=== PATIENT | female | born 1960 | race Caucasian/White ===

== ENCOUNTER 2017-08-04 11:38 | Emergency (ER) | payer BC, SELFPAY ==
[2017-08-04 12:07] VITALS: BP 122/81; PULSE 73; RESP 18; TEMP 36.6; O2SAT 99; BMI 25.1
[2017-08-04 12:13] LABS: UTC Influenza A Antigen Negative (Negative); UTC Influenza B Antigen Negative (Negative)
--- NOTE | 2017-08-04 12:53 | HMH.EDUTC ---
[facility] [place] Disposition Clinical Impression: Upper respiratory infection Qualifiers: URI type: unspecified URI Qualified Code(s): J06.9 - Acute upper respiratory infection, unspecified Disposition: Home, Self-Care Condition on Discharge: Good Instructions: Cough, Guaifenesin Additional Instructions: Take medication as prescribed Follow up with family doctor if symptoms worsen or no improvement Return if needed * Monitor Temp. Tylenol and/or Ibuprofen as needed. ER if fever is no less than 101 despite alternating Tylenol and Ibuprofen * Encourage fluids, water, Gatorade, powerade, pedialyte if /toddler/or child * Warm salt water gargles for throat irritation *Warm fluids *Sore throat lozenges *Sleep elevated *humidifier or vaporizer Lots of rest Increase fluids, water, Gatorade, powerade Prescriptions: Azithromycin [Z-Pb 250mg Tab] 250 mg PO UD DOSE PK #6 tab Dextromethorphan Polistirex [Delsym] 10 ml PO Q6H PRN #200 glen.er.12h PRN Reason: Cough predniSONE [Prednisone 10mg Tab Dose-Pack] 10 mg PO UD DOSE PK #1 pack Referrals: Joseph Pike MD [Primary Care Provider] - Time of Disposition: 13:28 Medical Decision Making Vital Signs: 08/04/17 12:07 Temperature 97.9 F Temperature Source Temporal Artery Scan Pulse Rate [Right] 73 Respiratory Rate 18 Blood Pressure [Right Arm] 122/81 Blood Pressure Mean [Right Arm] 94 Blood Pressure Source [Right Arm] Automatic Cuff Blood Pressure Position [Right Arm] Sitting 02 Sat by Pulse Oximetry 99 Oxygen Delivery Method Room Air - Lab Data Lab Results 08/04/17 12:07: Influenza Type A Ag Negative, Influenza Type B Ag Negative Orders (Tests/Meds): ORDERS Category Date Time Status Chest XR 2 view (NOT portable) [XR chest 2V] Stat Exams 08/04/17 12:55 Taken - Radiology Data #1 Image(s): Chest Image Reviewed: Yes I discussed the image results w/the radiologist Preliminary Findings: Normal/NAD calcified granuloma noted right lower lobe, no acute changes - Darek Inquiry Pt receiving controlled substance: No Darek was queried for this patient: No [facility] [place] HPI - General Stated complaint: congestion Mode of Arrival: Ambulatory Source of Information: Patient Limitations: No Limitations Description of Symptoms (Recalled from Triage Doc. by RN): COUGH, CONGESTION HEENT Symptoms (Recalled from RN notes): Yes Resp Symptoms (Recalled from RN notes): No Skin Symptoms (Recalled from RN notes): No MS Symptoms (Recalled from RN notes): No Functional Status (Recalled from RN notes): N - History of Present Illness Provider Complaint: Patient state that she has been having cough and congestion now for over a month that has continued to get worse State that she has been seen and treated by her family doctor and felt like she was getting better and now it has returned States that she has had non-productive cough, and chest congestion - Related Data Home Medications Medication Instructions Recorded Confirmed Bisoprolol Fumarate 10 mg PO BID 08/04/17 08/04/17 Cyclobenzaprine HCl 10 mg PO DAILY 08/04/17 08/04/17 [Cyclobenzaprine 10mg Tab] Gabapentin [Gabapentin 300mg Cap] 900 mg PO TID 08/04/17 08/04/17 Trazodone HCl 150 mg PO DAILY 08/04/17 08/04/17 hydroCHLOROthiazide [HCTZ 25mg 25 mg PO DAILY 08/04/17 08/04/17 tab] Previous Rx's Medication Instructions Recorded Azithromycin [Z-Pb 250mg Tab] 250 mg PO UD DOSE PK #6 tab 08/04/17 Dextromethorphan Polistirex 10 ml PO Q6H PRN #200 glen.er.12h 08/04/17 [Delsym] predniSONE [Prednisone 10mg Tab 10 mg PO UD DOSE PK #1 pack 08/04/17 Dose-Pack] Allergies Allergy/AdvReac Type Severity Reaction Status Date / Time Penicillins [PENICILLINS] Allergy Unknown NA-NAUSEA/V Verified 08/04/17 12:12 OMITING - Worker's Comp Is this a Worker's Comp case?: No [facility] History I have reviewed the patient's past medical history: Yes - *Social History Smoking Status: Current every
--- NOTE | 2017-08-04 12:55 | XR_ITS ---
XR chest 2V HISTORY: ITS.REASON: congestion ORDERING PHYSICIAN: Jo-Ann Marvin PATIENT AGE: 57 years COMPARISON: 04/17/2017 FINDINGS: The cardiomediastinal silhouette and pulmonary vascularity are within normal limits. The lungs are clear without infiltrates, suspicious nodules, or pleural effusions. There is a calcified granuloma in the right lung base anteriorly No acute bony abnormalities. IMPRESSION: No acute finding. Old granulomatous disease
--- NOTE | 2017-08-04 13:02 | ED_ITS ---
[facility] [place] Disposition Clinical Impression: Upper respiratory infection Qualifiers: URI type: unspecified URI Qualified Code(s): J06.9 - Acute upper respiratory infection, unspecified Disposition: Home, Self-Care Condition on Discharge: Good Instructions: Cough, Guaifenesin Additional Instructions: Take medication as prescribed Follow up with family doctor if symptoms worsen or no improvement Return if needed * Monitor Temp. Tylenol and/or Ibuprofen as needed. ER if fever is no less than 101 despite alternating Tylenol and Ibuprofen * Encourage fluids, water, Gatorade, powerade, pedialyte if /toddler/or child * Warm salt water gargles for throat irritation *Warm fluids *Sore throat lozenges *Sleep elevated *humidifier or vaporizer Lots of rest Increase fluids, water, Gatorade, powerade Prescriptions: Azithromycin [Z-Pb 250mg Tab] 250 mg PO UD DOSE PK #6 tab Dextromethorphan Polistirex [Delsym] 10 ml PO Q6H PRN #200 glen.er.12h PRN Reason: Cough predniSONE [Prednisone 10mg Tab Dose-Pack] 10 mg PO UD DOSE PK #1 pack Referrals: Joseph Pike MD [Primary Care Provider] - Time of Disposition: 13:28 Medical Decision Making Vital Signs: 08/04/17 12:07 Temperature 97.9 F Temperature Source Temporal Artery Scan Pulse Rate [Right] 73 Respiratory Rate 18 Blood Pressure [Right Arm] 122/81 Blood Pressure Mean [Right Arm] 94 Blood Pressure Source [Right Arm] Automatic Cuff Blood Pressure Position [Right Arm] Sitting 02 Sat by Pulse Oximetry 99 Oxygen Delivery Method Room Air - Lab Data Lab Results 08/04/17 12:07: Influenza Type A Ag Negative, Influenza Type B Ag Negative Orders (Tests/Meds): ORDERS Category Date Time Status Chest XR 2 view (NOT portable) [XR chest 2V] Stat Exams 08/04/17 12:55 Taken - Radiology Data #1 Image(s): Chest Image Reviewed: Yes I discussed the image results w/the radiologist Preliminary Findings: Normal/NAD calcified granuloma noted right lower lobe, no acute changes - Darek Inquiry Pt receiving controlled substance: No Darek was queried for this patient: No [facility] [place]PI - General Stated complaint: congestion Mode of Arrival: Ambulatory Source of Information: Patient Limitations: No Limitations Description of Symptoms (Recalled from Triage Doc. by RN): COUGH, CONGESTION HEENT Symptoms (Recalled from RN notes): Yes Resp Symptoms (Recalled from RN notes): No Skin Symptoms (Recalled from RN notes): No MS Symptoms (Recalled from RN notes): No Functional Status (Recalled from RN notes): N - History of Present Illness Provider Complaint: Patient state that she has been having cough and congestion now for over a month that has continued to get worse State that she has been seen and treated by her family doctor and felt like she was getting better and now it has returned States that she has had non-productive cough, and chest congestion - Related Data Home Medications Medication Instructions Recorded Confirmed Bisoprolol Fumarate 10 mg PO BID 08/04/17 08/04/17 Cyclobenzaprine HCl 10 mg PO DAILY 08/04/17 08/04/17 [Cyclobenzaprine 10mg Tab] Gabapentin [Gabapentin 300mg Cap] 900 mg PO TID 08/04/17 08/04/17 Trazodone HCl 150 mg PO DAILY 08/04/17 08/04/17 hydroCHLOROthiazide [HCTZ 25mg 25 mg PO DAILY 08/04/17 08/04/17 tab] Previo
== END 2017-08-04 13:40 | disposition home or self-care (01) ==
PROVIDERS: Emergency Provider Nurse Practitioner; Family Provider Internal Medicine Adolescent Medicine; PCP Internal Medicine Adolescent Medicine
DX: J06.9 Acute upper respiratory infection, unspecified (principal); F17.210 Nicotine dependence, cigarettes, uncomplicated
CPT/HCPCS: 71046; 87804; 99202

== ENCOUNTER → 2017-10-20 12:52 | Outpatient (CLI) | payer BC, SELFPAY ==
[2017-10-20 13:19] LABS: Basophils % 0.5 % (0.1-2.0); Eosinophils # 0.4 K/mm3 (0.0-0.4); Eosinophils % 6.7 % (0.1-12.0); Hematocrit 46.5 % (37.0-47.0); Hemoglobin 15.9 g/dL (12.2-16.2); Lymphocytes # 2.4 K/mm3 (0.7-4.5); Lymphocytes % 36.8 K/mm3 (10-50); Mean Corpuscular HGB Conc 34.2 g/dL (31.8-35.4); Mean Corpuscular Hemoglobin 31.8 pg (27.0-31.2); Mean Platelet Volume 8.5 fl (7.4-10.4); Monocytes # 0.3 K/mm3 (0.1-1.0); Monocytes % 4.6 % (1.7-9.3); Neutrophils # 3.3 K/mm3 (1.8-7.8); Neutrophils % 51.4 % (37.0-80.0); Platelet Count 259 K/mm3 (142-424); Red Blood Count 4.99 M/mm3 (4.20-5.40); Red Cell Distribution Width 12.3 % (11.5-17.5); White Blood Count 6.5 K/mm3 (4.8-10.8)
[2017-10-20 14:04] LABS: Thyroid Stimulating Hormone 1.21 uIU/ml (0.358-3.740)
[2017-10-21 15:48] LABS: Cancer Antigen (CA) 125 10.6 U/mL (0.0-38.1)
== END ==
PROVIDERS: PCP Internal Medicine Adolescent Medicine; Visit Provider Obstetrics & Gynecology
DX: L65.9 Nonscarring hair loss, unspecified (principal); R10.2 Pelvic and perineal pain
CPT/HCPCS: 36415; 84443; 85025; 86316

== ENCOUNTER → 2017-10-26 09:18 | Outpatient (CLI) | payer BC, SELFPAY ==
--- NOTE | 2017-10-26 09:28 | US_ITS ---
US transvaginal COMPARISON: None HISTORY: Previous partial hysterectomy 1985, complaining pelvic pain for the past 2 years TECHNIQUE: Transvaginal scanning FINDINGS: The vaginal cuff appears unremarkable. The left ovary is normal in size and shows homogeneous echogenicity. The right ovary is normal size and shows a dominant and probable functional cyst measuring 2.1 x 2.5 x 1.3 cm. Loops of bowel likely colon are seen in the midline of the mid pelvis. There is no free fluid. IMPRESSION: Normal-appearing left ovary, small cyst right ovary is noted
--- NOTE | 2017-10-26 09:28 | MM_ITS ---
MM Dig screening mamm BI w/CAD CAD Screening ORDERING PHYSICIAN : Charles Caicedo MD PATIENT AGE: 57 years GENDER: Female COMPARISON: We have requested outside studies from [facility] but they've never arrived less study is dictated without previous INDICATION: No hormones no new complaints. Patient with history of cervical cancer Family history. Mother breast cancer age 58 TECHNIQUE: Standard CC and MLO images were obtained. And axillary cc view left breast R2 CAD reviewed. FINDINGS: Moderate density breast RIGHT BREAST:Small cluster of more likely benign calcifications,-which are for the most part fairly round and punctate, noted at the upper outer quadrant of the right breast Prior studies would be helpful.. This Area Is Labeled A. Suggest CC and 90 degree and MLO magnification spot views of this area when patient returns. If feasible perhaps 90 degree spot view can include area B and C can include Patient has other small areas of loosely grouped tiny more likely benign calcifications right breast: . Area labeled B in the deep breast. Also area labeled C towards medial central breast would also benefit from follow-up study Moderate density right breast with some mild asymmetry. But no discrete or dominant mass LEFT BREAST:. Mild asymmetry with slightly greater density at upper-outer quadrant left versus right. This region highlighted by CAD as well.. Again prior films of the very helpful and we will call again for such... Appears be some minimal nodularity here at site labeled X. Could merely be a small cyst. However recommend ultrasound to survey this region of denser tissue & asymmetry extending towards upper-outer quadrant left breast. Follow-up to exclude palpable area here also suggested . IMPRESSION: We have called for previous studies from [facility] but they have never arrived. They would have been very helpful in this case . The breasts with moderate asymmetry. . Left Breast: with notable asymmetric denser tissue extending from retroareolar region into the upper-outer quadrant. Small 8 x 10 mm nodular density suggested in this region.- Possible cyst. Recommend spot views and ultrasound to survey this area upper outer quadrant, left breast. Could merely be asymmetric fibroglandular tissue but warrants ultrasound survey RIGHT BREAST: scattered small groupings of calcifications, most likely benign . Most notable clustered area of calcifications seen at deep upper-outer quadrant right breast.. Magnification spot views suggested here to further evaluate when patient returns BI-RADS Category: 0 Need Additional Imaging Evaluaiton. RECOMMENDED FOLLOW-UP: IMM - IMMEDIATE FOLLOW-UP RECOMMENDED ADDITIONAL IMAGING Bilateral Spot views as text above, along with left breast ultrasound . (A letter has been sent to the patient regarding results of the study.)
== END ==
PROVIDERS: Family Provider Internal Medicine Adolescent Medicine; PCP Internal Medicine Adolescent Medicine; Visit Provider Obstetrics & Gynecology
DX: Z12.31 Encounter for screening mammogram for malignant neoplasm of breast (principal); R10.2 Pelvic and perineal pain
CPT/HCPCS: 76830; 77067

== ENCOUNTER → 2017-11-17 10:18 | Outpatient (CLI) | payer BC, SELFPAY ==
[2017-11-17 10:21] LABS: Microscopic, Urine URINE MICROSCOPIC (MICROSCOPIC)
--- NOTE | 2017-11-17 10:37 | XR_ITS ---
XR chest 2V HISTORY: ITS.REASON: HTN ORDERING PHYSICIAN: Charles Caicedo MD PATIENT AGE: 57 years COMPARISON: 08/04/2017 FINDINGS: The cardiomediastinal silhouette and pulmonary vascularity are within normal limits. The lungs are clear without infiltrates, suspicious nodules, or pleural effusions. Calcified granulomas present in the right lung base anteriorly No acute bony abnormalities. IMPRESSION: No change with no acute finding
[2017-11-17 10:55] LABS: Appearance,Urine CLEAR (Clear); Bilirubin,Urine Negative (Negative); Blood, Urine Negative (Negative); Color,Urine YELLOW (Yellow); Glucose,Urine (UA) Negative (Negative); Ketones,Urine Negative (Negative); Leukocyte Esterase,Urine Negative (Negative); Nitrate,Urine Negative (Negative); Protein,Urine Negative (Negative); Urobilinogen,Urine 0.2 EU/dl (0.2)
[2017-11-17 11:05] LABS: Basophils # 0.1 K/mm3 (0-0.2); Basophils % 0.7 % (0.1-2.0); Eosinophils # 0.6 K/mm3 (0.0-0.4); Eosinophils % 7.8 % (0.1-12.0); Hematocrit 44.1 % (37.0-47.0); Hemoglobin 14.7 g/dL (12.2-16.2); Lymphocytes # 2.7 K/mm3 (0.7-4.5); Lymphocytes % 33.1 K/mm3 (10-50); Mean Corpuscular HGB Conc 33.3 g/dL (31.8-35.4); Mean Corpuscular Hemoglobin 30.8 pg (27.0-31.2); Mean Corpuscular Volume 92.5 fl (81-99); Mean Platelet Volume 7.4 fl (7.4-10.4); Monocytes # 0.5 K/mm3 (0.1-1.0); Monocytes % 6.5 % (1.7-9.3); Neutrophils # 4.2 K/mm3 (1.8-7.8); Neutrophils % 51.9 % (37.0-80.0); Platelet Count 269 K/mm3 (142-424); Red Blood Count 4.77 M/mm3 (4.20-5.40); Red Cell Distribution Width 12.7 % (11.5-17.5); White Blood Count 8.2 K/mm3 (4.8-10.8)
[2017-11-17 11:26] LABS: WBC,Urine Occasional #/hpf (0-3)
[2017-11-17 11:27] LABS: Bacteria,Urine 1+ /lpf
[2017-11-17 12:16] LABS: Alanine Aminotransferase 20 U/L (12-78); Albumin Level 3.9 gm/dL (3.4-5.0); Alkaline Phosphatase 103 U/L (46-116); Anion Gap 11.3 mEq/L (5-15); Aspartate Amino Transferase 18 U/L (15-37); Bilirubin,Total 0.3 mg/dL (0.2-1.0); Blood Urea Nitrogen 14 mg/dL (7-18); Calcium 9.3 mg/dL (8.5-10.1); Carbon Dioxide 32 mmol/L (21.0-32.0); Chloride 102 mmol/L (98-107); Creatinine,Serum 0.98 mg/dL (0.55-1.02); Estimated Glomerular Filt Rate 59 ml/min (>60); GFR (African American) 71 ML/MIN (>60); Globulin 3.9 gm/dl (1.3-3.2); Glucose 81 mg/dL (74-106); Potassium 3.3 mmoL/L (3.5-5.1); Sodium 142 mmol/L (136-145); Total Protein,Serum 7.8 gm/dL (6.4-8.2)
== END ==
PROVIDERS: Visit Provider Obstetrics & Gynecology
DX: Z01.818 Encounter for other preprocedural examination (principal); R19.00 Intra-abdominal and pelvic swelling, mass and lump, unspecified site; R10.2 Pelvic and perineal pain
CPT/HCPCS: 36415; 71046; 80053; 81001; 85025; 93005

== ENCOUNTER → 2017-12-08 13:46 | Outpatient (CLI) | payer BC, SELFPAY ==
--- NOTE | 2017-12-08 13:49 | US_ITS ---
MM Dig mamm BI DX w/CAD, US breast LT complete COMPARISON: 10/26/2017, 08/23/2009 INDICATION: Follow-up abnormal mammogram ORDERING PHYSICIAN: Charles Caicedo MD PATIENT AGE: 57 years TECHNIQUE: Problem-solving views performed along with left breast ultrasound FINDINGS: THE REPORT IS DELAYED WAITING ON OUTSIDE FILMS FOR COMPARISON WHICH ARRIVED FOR TODAY'S INTERPRETATION Right breast: Cluster of calcifications noted in the upper outer aspect of the right breast which were labeled as A on the screening exam. These calcifications were present on the exam of 08/23/2009 probably unchanged however better demonstrated due to technique. Other smaller clusters of calcification noted which were labeled as B and C. These were not readily apparent on the previous study but may not have been seen due to the technique. Six-month follow-up is suggested Probably benign. Left breast: Cluster of calcifications noted in the upper outer aspect of left breast may be present previously but better seen on today's exam likely related to the technique. Asymmetric density in the upper outer aspect of the left breast does appear to compress out and may represent fibroglandular tissue. No discrete sonographic abnormality in this region. Left breast ultrasound: No solid or cystic lesions evident. Specifically, no abnormalities evident in the area of concern on the screening exam. IMPRESSION: Bilateral breast calcifications which are probably benign. Asymmetric density upper outer left breast does appear to compress out as fibroglandular tissue BI-RADS Category: 3 Benign Finding Short Term Follow-up RECOMMENDED FOLLOW-UP: 6M - 6 MONTH FOLLOW-UP (A letter has been sent to the patient regarding results of the study.)
== END ==
PROVIDERS: Family Provider Internal Medicine Adolescent Medicine; PCP Internal Medicine Adolescent Medicine; Visit Provider Obstetrics & Gynecology
DX: R92.8 Other abnormal and inconclusive findings on diagnostic imaging of breast (principal); N64.89 Other specified disorders of breast
CPT/HCPCS: 76641; 77066

== ENCOUNTER → 2018-05-29 08:36 | Outpatient (CLI) | payer BC, SELFPAY ==
[2018-05-29 11:17] LABS: Hemoglobin A1C 5.9 % (0.0-7.0)
== END ==
PROVIDERS: Visit Provider Family Medicine
DX: R73.9 Hyperglycemia, unspecified (principal)
CPT/HCPCS: 36415; 83036

== ENCOUNTER → 2019-09-05 08:03 | Outpatient (CLI) | payer BC, SELFPAY ==
--- NOTE | 2019-09-05 08:08 | US_ITS ---
PROCEDURE: US ABDOMEN COMPLETE CLINICAL INDICATION: CIRRHOSIS COMPARISON: ABD US ABD(COMPLETE-MULTI ORGANS from 10/27/[address] abdomen pelvis w con from 01/28/2019 FINDINGS: PANCREAS: Unremarkable. No obvious mass or abnormal fluid collection. No ductal dilatation LIVER: No focal liver lesions demonstrated. Homogeneous echogenicity. No intrahepatic biliary ductal dilatation evident. There is appropriate direction of blood flow within a non dilated portal vein. The liver is enlarged measuring 23 cm in transverse dimension. RIGHT KIDNEY: Unremarkable. Normal size and echogenicity. No hydronephrosis LEFT KIDNEY: Unremarkable. Normal size and echogenicity. No hydronephrosis GALLBLADDER: Prior cholecystectomy. Common bile duct is 7 mm. AORTA: No evidence of aneurysmal dilatation. SPLEEN: Unremarkable. Normal size and echogenicity ASCITES: None demonstrated. IMPRESSION: Prior cholecystectomy. Mild pattern megaly otherwise Dictated by: Fede Rodriguez MD 09/05/2019 11:58 Electronically signed by Fede Rodriguez MD in [place] 09/05/2019 11:58
[2019-09-05 09:30] LABS: INR 0.98 (0.9-1.1); Prothrombin Time 10.2 seconds (9.4-11.8)
[2019-09-05 09:35] LABS: Basophils % 0.4 % (0.1-2.0); Eosinophils # 0.5 K/mm3 (0.0-0.4); Eosinophils % 5.9 % (0.1-12.0); Hematocrit 41.3 % (37.0-47.0); Hemoglobin 13.7 g/dL (12.2-16.2); Lymphocytes # 2.1 K/mm3 (0.7-4.5); Lymphocytes % 25.8 % (10-50); Mean Corpuscular HGB Conc 33.2 g/dL (31.8-35.4); Mean Corpuscular Volume 93.4 fl (81-99); Mean Platelet Volume 7.9 fl (7.4-10.4); Monocytes # 0.4 K/mm3 (0.1-1.0); Monocytes % 5.1 % (1.7-9.3); Neutrophils % 62.9 % (37.0-80.0); Platelet Count 234 K/mm3 (142-424); Red Blood Count 4.42 M/mm3 (4.20-5.40); Red Cell Distribution Width 12.6 % (11.5-17.5)
[2019-09-05 11:15] LABS: Alanine Aminotransferase 18 U/L (12-78); Albumin Level 3.6 gm/dL (3.4-5.0); Alkaline Phosphatase 83 U/L (46-116); Anion Gap 13.6 mEq/L (5-15); Aspartate Amino Transferase 16 U/L (15-37); Bilirubin,Total 0.4 mg/dL (0.2-1.0); Blood Urea Nitrogen 12 mg/dL (7-18); Calcium 9.2 mg/dL (8.5-10.1); Carbon Dioxide 30 mmol/L (21.0-32.0); Chloride 105 mmol/L (98-107); Estimated Glomerular Filt Rate 65 ml/min (>60); GFR (African American) 78 ML/MIN (>60); Globulin 3.5 gm/dl (1.3-3.2); Glucose 96 mg/dL (74-106); Potassium 3.6 mmoL/L (3.5-5.1); Sodium 145 mmol/L (136-145); Total Protein,Serum 7.1 gm/dL (6.4-8.2)
[2019-09-07 15:07] LABS: AFP, Tumor Marker 6.8 ng/mL (0.0-8.3)
== END ==
PROVIDERS: PCP Family Medicine; Visit Provider Internal Medicine Gastroenterology
DX: K74.69 Other cirrhosis of liver (principal); Z86.19 Personal history of other infectious and parasitic diseases
CPT/HCPCS: 36415; 76700; 80053; 82105; 85025; 85610; 87522

== ENCOUNTER → 2020-08-20 12:52 | Outpatient (CLI) | payer BC, SELFPAY ==
--- NOTE | 2020-08-20 13:02 | XR_ITS ---
PROCEDURE: XR CHEST 2V CLINICAL HISTORY: chest pain, dyspnea COMPARISON: CR CXR1 CHEST-PORTABLE from 04/17/2017 CR CXR2V XR chest 2V from 08/04/2017 DX CXR2V XR chest 2V from 11/17/2017 FINDINGS: The cardiomediastinal silhouette and pulmonary vascularity are within normal limits. The lungs are clear without infiltrates, suspicious nodules, or pleural effusions. Calcified granuloma right lung base. The remaining lungs are clear. No acute bony findings. IMPRESSION: No acute findings. Dictated by: Fede Rodriguez MD 08/20/2020 17:15 Fede Rodriguez MD in [place] 08/20/2020 17:15
== END ==
LOC: RAD 12:54
PROVIDERS: PCP Family Medicine; Visit Provider Internal Medicine
DX: R07.9 Chest pain, unspecified (principal); R06.00 Dyspnea, unspecified; R00.2 Palpitations; I51.7 Cardiomegaly; F17.200 Nicotine dependence, unspecified, uncomplicated
CPT/HCPCS: 71046; 93225; 93226

== ENCOUNTER → 2020-08-27 06:36 | Outpatient (CLI) | payer BC, SELFPAY ==
--- NOTE | 2020-08-27 06:36 | CA_ITS ---
APPROVED REPORT Exam: Pharmacologic Technologist: Flavia Israel Ht: 5 ft 10 in Wt: 169 lbs BSA: 1.94 m2 HR: 64 bpm BP: 172/89 mmHg Indications: Palpitations, Shortness of Air Medical History Medications: Lisinopril,,,,, Gabapentin,,,,, HCTZ,,,,, Ibuprofen,,,,, BisOPROLOL,,,,, Cyclobenzaprine,,,,, Hydroxyzine,,,,, Trazodone,,,,, Pleranatide,,,,, Stress Test Details Test: LEXISCAN HR Resting HR: 70 bpm Max Heart Rate (APMHR): 162 bpm Max HR Achieved: 92 bpm Target HR (85% APMHR): 137 bpm % of APMHR: 56 Recovery HR: 80 bpm BP Resting BP: 172.0/89.0 mmHg Max BP: 172.0/89.0 mmHg Recovery BP: 168.0/93.0 mmHg ECG Clinical Exercise duration: 04:00 min Highest Stage Achieved: Exercise capacity: 1.0 METs Stress ECG Conclusion Symptoms: Shortness of air and nausea with Lexiscan infusion. Denies chest pain. Arrhythmias/Ectopy: None ST-T Changes: < 1.[address] segment changes. Electronically signed by : Rush Geiger, 08/27/2020 19:21:49
--- NOTE | 2020-08-27 06:36 | CA_ITS ---
APPROVED REPORT EXAM: Comprehensive 2D, Doppler, and color-flow Echocardiogram Wool Scourer: Olga Lidia Hernandez RCS, RVS Ht: 5 ft 10 in Wt: 169lbs BSA: 1.94 BP: 148/82 mmHg Indications: palpitations, afib, cp, smoker, sob, fatigue 2D Dimensions IVSd 1.04 cm LVEF (Visual) 52.40 % PWd 0.82 cm LA Volume 46.60 mL LVDd 5.01 cm LA Volume Index 23.40 mL/m2 (M/F) 16-34 LVDs 3.66 cm LVOT 1.70 cm (M/F) 1.5-2.5 M-Mode Dimensions LA Diam 4.27 cm (1.9-4.0) LVDd 4.21 cm (3.5-5.7) Ao Diam 2.92 cm (2.0-3.7) LVDs 2.71 cm (3.5-5.7) EF (Teich) 65.40% EPSs 0.22 cm FS 35.60% EDV (Teich) 79.00 mL ESV (Teich) 27.30 mL LV Diastology E Decel Time 227.00 (160-240 msec) E/A Ratio 0.84 MED E' 7.70 (< 7 cm/sec) MED A' 8.10 cm/s E'/MED E' Ratio 11.83 (>14) LAT E' 8.80 (<10 cm/sec) LAT A' 9.70 cm/s E/LAT E' Ratio 10.35 (>14) Aortic Valve AO Peak GR. 5.60 mmHg Mitral Valve MV E Max Kostas. 91.00 (40-130 cm/s) MV A Velocity 109.00 (40-130 cm/s) E/A Ratio 0.84 MV Decel. Time 227.00 (160-240 ms) MV PHT 66.00 ms Pulmonary Valve PV Peak Velocity 90.00 (50-150 cm/s) Tricuspid Valve TR P. Velocity 264.00 cm/s RAP Estimate 10.00 mmHg RVSP 38.00 mmHg Left Ventricle Left atrium is mildly enlarged, left ventricle is normal size, mild concentric left ventricular hypertrophy, visually estimated ejection fraction 55% with no regional wall motion abnormality, grade 1 diastolic dysfunction seen without tissue Doppler evidence of raise left atrial pressure. Right Ventricle Right atrium and right ventricle are normal size and contractility. Aortic Valve Aortic valve is minimally thickened and fibrosed, there is no aortic stenosis or aortic insufficiency. Mitral Valve Mitral valve is grossly normal, there is mild mitral regurgitation. Tricuspid Valve Tricuspid valve grossly normal, there is mild tricuspid regurgitation, tricuspid regurgitation jet velocity is inadequate for calculation of the right ventricular systolic pressure. Pulmonic Valve Pulmonic valve is poorly visualized. Great Vessels Aortic root is normal size. Pericardium No significant pericardial effusion noted. Conclusion 1. Mildly enlarged left atrium, normal left ventricular size, mild concentric left ventricular hypertrophy, visually estimated ejection fraction 55% with no regional wall motion abnormality, grade 1 diastolic dysfunction seen without tissue Doppler evidence of raise left atrial pressure. 2. Mild mitral and tricuspid regurgitation. 3. No significant pericardial effusion noted. Electronically signed by : Rush Geiger, 08/27/2020 19:41:49
--- NOTE | 2020-08-27 06:36 | NM_ITS ---
APPROVED REPORT Exam: Nuclear Stress Test Indication: Chest pain, SOB, Palpitations, HTN, Tobacco use, Family history Patient Location: Outpatient Stress Tech: Flavia Israel HI Tech:María Sharma, ARRT, RT (R)(N) Ht: 5 ft 10 in Wt: 165 lbs Bra Size: 36B HR: 64 bpm BP: 172/89 mmHg BSA: 1.92 m2 BMI: 23.6 History: Chest pain, SOB, Palpitations, HTN, Tobacco use, Family history Procedure: Patient received a 0.4 mg of intravenous Lexiscan, resting heart rate 64 bpm, resting blood pressure 172/89 mmHg, with Lexiscan maximum heart rate achived was 91 bpm which is Less than 85 % of the maximum predicted heart rate and blood pressure was 149/93 mmHg. With Lexiscan, patient denied any complaint of chest pain. Electrocardiogram Resting electrocardiogram showed sinus rhythm, with Lexiscan there is less than 1.[address] segment depression noted from the baseline EKG. The EKG portion of the Lexiscan is nondiagnostic. Cardiac Stress and Resting SPECT Images: Cardiac Stress and Resting SPECT images were obtained using technetium 99m Myoview 31.6 mCi stress and 10.79 mCi at rest. Gated SPECT for analysis of segmental wall motion and calculation of the ejection fraction also done. Cardiac stress and resting SPECT images show uniform myocardial activity without segmental perfusion abnormality, computer derived ejection fraction is 61% with no regional wall motion abnormality, right ventricle is normal size and contractility. Conclusion: 1. The EKG portion of the Lexiscan is nondiagnostic. 2. No scintigraphic evidence of reversible ischemia seen, computer derived ejection fraction is 61% with no regional wall motion abnormality, right ventricle is normal size and contractility. 3. Normal Lexiscan Myoview study. Electronically signed by : Rush Geiger, 08/27/2020 19:27:59
--- NOTE | 2020-08-27 08:24 | HMH.ITSHM ---
Current Home Medications as stated by this patient Yulissa Mckeon or education courses sales representative. []BISOPROLOL CYCLOBENZAPINE GABAPENTIN HCTZ HYDROXYZINE IBUPROFEN LISINOPRIL PLECANTIDE TRAZADONE
--- NOTE | 2020-08-27 09:21 | US_ITS ---
PROCEDURE: US ABDOMEN COMPLETE CLINICAL INDICATION: CIRRHOSIS COMPARISON: CT ABDPELW CT abdomen pelvis w con from 01/28/2019 US US ABDOMEN COMPLETE from 09/05/2019 FINDINGS: PANCREAS: Unremarkable. No obvious mass or abnormal fluid collection. No ductal dilatation LIVER: No focal liver lesions demonstrated. Homogeneous echogenicity. No intrahepatic biliary ductal dilatation evident. There is appropriate direction of blood flow within a non dilated portal vein. There are 2 small areas of increased echogenicity in the right hepatic lobe nonspecific possibly due to some a hepatitic scarring or fibrosis liver margin is slightly irregular which may be related to cirrhotic appearance RIGHT KIDNEY: Unremarkable. Normal size and echogenicity. No hydronephrosis LEFT KIDNEY: Unremarkable GALLBLADDER: Prior cholecystectomy AORTA: No evidence of aneurysmal dilatation. SPLEEN: Unremarkable. Normal size and echogenicity ASCITES: None demonstrated. IMPRESSION: Suspect some fibrosis or scarring in the right hepatic lobe with some irregularity of the liver surface suggesting cirrhosis. Overall no change with no acute finding. Dictated by: Fede Rodriguez MD 08/27/2020 16:29 Fede Rodriguez MD in [place] 08/27/2020 16:29
[2020-08-27 11:03] LABS: Basophils % 0.8 % (0.1-2.0); Eosinophils # 0.3 K/mm3 (0.0-0.4); Eosinophils % 5.4 % (0.1-12.0); Hematocrit 46.8 % (37.0-47.0); Hemoglobin 15.6 g/dL (12.2-16.2); Lymphocytes # 2.3 K/mm3 (0.7-4.5); Lymphocytes % 41.6 % (10-50); Mean Corpuscular HGB Conc 33.4 g/dL (31.8-35.4); Mean Corpuscular Hemoglobin 32.1 pg (27.0-31.2); Mean Corpuscular Volume 95.9 fl (81-99); Mean Platelet Volume 7.8 fl (7.4-10.4); Monocytes # 0.3 K/mm3 (0.1-1.0); Monocytes % 5.4 % (1.7-9.3); Neutrophils # 2.6 K/mm3 (1.8-7.8); Neutrophils % 46.8 % (37.0-80.0); Platelet Count 236 K/mm3 (142-424); Red Blood Count 4.88 M/mm3 (4.20-5.40); Red Cell Distribution Width 13.5 % (11.5-17.5); White Blood Count 5.5 K/mm3 (4.8-10.8)
[2020-08-27 11:18] LABS: Alanine Aminotransferase 16 U/L (12-78); Albumin Level 4.3 g/dl (3.5-5.0); Alkaline Phosphatase 85 U/L (38-126); Anion Gap 10.7 mEq/L (5-15); Aspartate Amino Transferase 24 U/L (14-36); Bilirubin,Direct 0.3 mg/dl (0.0-0.4); Bilirubin,Indirect 0.3 mg/dL (0.0-0.9); Bilirubin,Total 0.6 mg/dl (0.2-1.3); Bilirubin,Unconjugated 0.3 mg/dL (0.0-1.1); Blood Urea Nitrogen 12 mg/dl (7-17); Calcium 9.8 mg/dl (8.4-10.2); Carbon Dioxide 32 mmol/L (22.0-30.0); Chloride 98 mmol/L (98-107); Cholesterol 169 mg/dl (140-200); Estimated Glomerular Filt Rate 103 ml/min (>60); GFR (African American) 124 ML/MIN (>60); Glucose 109 mg/dl (74-100); HDL Cholesterol 42 mg/dl (40-60); Potassium 3.7 mmoL/L (3.5-5.1); Sodium 137 mmol/L (136-145); Total Protein,Serum 7.8 g/dl (6.3-8.2); Triglycerides 156 mg/dl (30-150); VLDL Cholesterol 31 mg/dL (0-40)
[2020-08-27 11:29] LABS: Direct LDL Cholesterol 91.38 mg/dL (100-129)
[2020-08-27 11:34] LABS: Free T4 (Free Thyroxine) 1.24 ng/dl (0.78-2.19)
[2020-08-27 11:48] LABS: Thyroid Stimulating Hormone 0.18 uIU/mL (0.465-4.68)
== END ==
PROVIDERS: PCP Family Medicine; Visit Provider Internal Medicine
DX: R07.9 Chest pain, unspecified (principal); R07.89 Other chest pain; R06.00 Dyspnea, unspecified; R00.2 Palpitations; I51.7 Cardiomegaly; E11.9 Type 2 diabetes mellitus without complications; I11.9 Hypertensive heart disease without heart failure; F17.200 Nicotine dependence, unspecified, uncomplicated
CPT/HCPCS: 36415; 76700; 78452; 80048; 80061; 80076; 84439; 84443; 85025; 93017; 93306; A9502; J2785

== ENCOUNTER → 2020-11-14 09:30 | Outpatient (CLI) | payer BC, SELFPAY ==
[2020-11-14 10:05] LABS: Basophils # 0.1 K/mm3 (0-0.2); Basophils % 0.7 % (0.1-2.0); Eosinophils # 0.5 K/mm3 (0.0-0.4); Eosinophils % 6.2 % (0.1-12.0); Hematocrit 42.6 % (37.0-47.0); Hemoglobin 14.4 g/dL (12.2-16.2); Lymphocytes # 2.1 K/mm3 (0.7-4.5); Lymphocytes % 29.4 % (10-50); Mean Corpuscular HGB Conc 33.8 g/dL (31.8-35.4); Mean Corpuscular Hemoglobin 31.7 pg (27.0-31.2); Mean Corpuscular Volume 93.9 fl (81-99); Mean Platelet Volume 7.7 fl (7.4-10.4); Monocytes # 0.3 K/mm3 (0.1-1.0); Monocytes % 4.6 % (1.7-9.3); Neutrophils # 4.3 K/mm3 (1.8-7.8); Platelet Count 272 K/mm3 (142-424); Red Blood Count 4.53 M/mm3 (4.20-5.40); Red Cell Distribution Width 13.6 % (11.5-17.5); White Blood Count 7.2 K/mm3 (4.8-10.8)
[2020-11-14 10:18] LABS: Chloride 102 mmol/L (98-107); Potassium 3.8 mmoL/L (3.5-5.1)
[2020-11-14 10:19] LABS: INR 0.92 (0.9-1.1); Prothrombin Time 10.9 seconds (10.1-12.5); Sodium 137 mmol/L (136-145)
[2020-11-14 10:20] LABS: Albumin Level 4.4 g/dl (3.5-5.0)
[2020-11-14 10:21] LABS: Alanine Aminotransferase 16 U/L (12-78); Anion Gap 8.8 mEq/L (5-15); Aspartate Amino Transferase 26 U/L (14-36); Blood Urea Nitrogen 12 mg/dl (7-17); Calcium 9.6 mg/dl (8.4-10.2); Carbon Dioxide 30 mmol/L (22.0-30.0); Estimated Glomerular Filt Rate 86 ml/min (>60); GFR (African American) 104 ML/MIN (>60); Glucose 128 mg/dl (74-100)
[2020-11-14 10:22] LABS: Albumin/Globulin Ratio 1.4 (1.1-1.8); Alkaline Phosphatase 93 U/L (38-126); Bilirubin,Total 0.6 mg/dl (0.2-1.3); Globulin 3.1 g/dL (1.3-3.2); Total Protein,Serum 7.5 g/dl (6.3-8.2)
[2020-11-15 15:18] LABS: AFP, Tumor Marker 7.7 ng/mL (0.0-8.3)
== END ==
PROVIDERS: Visit Provider Internal Medicine Gastroenterology
DX: K74.69 Other cirrhosis of liver (principal)
CPT/HCPCS: 36415; 80053; 82105; 85025; 85610

== ENCOUNTER 2020-12-13 15:54 | Emergency (ER) | payer BC, SELFPAY ==
[2020-12-13 16:05] VITALS: BP 142/76; PULSE 76; RESP 19; TEMP 36.8; O2SAT 98; BMI 23.6
--- NOTE | 2020-12-13 16:25 | HMH.EDUTC ---
[facility] Disposition Clinical Impression: Encounter for laboratory testing for COVID-19 virus Disposition: Home, Self-Care Condition on Discharge: Good Instructions: DI for COVID-19 (Suspected or Confirmed ), Coronavirus Disease 2019, Preventing the Spread of Coronavirus Discharge Instructions Additional Instructions: *Monitor Temp, Over the counter Motrin or Tylenol as directed/as needed Tylenol every 4 hours and Motrin every 6 hours (as long as your family doctor has told you that you can take it) for fever or pain. and straight to ER if unable to lower temp less than 101.0 after medication given *Warm salt water gargles may help to soothe the throat *Throat Lozenges *Warm fluids like tea with honey may help to soothe the throat *Sleep elevated *Humidifier/Vaporizer *Flonase 2 sprays in each nostril daily but be aware that it may take 2-3 days before you notice improvement Follow up IMMEDIATELY for new or worsening symptoms or no Noticeable improvement over the next 48-72 hours. 911 for difficulty breathing or swallowing You were tested for today for COVID19 your test result should be back in the next 24-48 hours, you may call to the [facility] to see if your test results are back in the next 48 hours [phone] [facility] hours are 9am-9pm You was given a handout with instructions for Self Quarantine and Self isolation for while you wait on test results and what to do if they are positive If you are positive the Health Dept will be contacting you also Referrals: Charlene Cerda [Primary Care Provider] - As needed Time of Disposition: 16:27 Medical Decision Making - Darek Inquiry Pt receiving controlled substance: No Darek was queried for this patient: No Vital Signs: 12/13/20 16:05 Temperature 98.3 F Temperature Source Oral Pulse Rate [Right Brachial] 76 Respiratory Rate 19 Blood Pressure [Right Arm] 142/76 H Blood Pressure Mean [Right Arm] 98 Blood Pressure Source [Right Arm] Automatic Cuff Blood Pressure Position [Right Arm] Sitting 02 Sat by Pulse Oximetry 98 Oxygen Delivery Method Room Air Orders (Tests/Meds): ORDERS Category Date Time Status Covid-19 Nasal PCR ([facility]) Routine Lab 12/13/20 15:56 Ordered Covid-19 Nasal PCR ([facility]) Routine Lab 12/13/20 16:10 Received [facility] HPI - General Stated complaint: covid test Time Seen by Provider: 12/13/20 16:25 Mode of Arrival: Ambulatory Source of Information: Patient Limitations: No Limitations Description of Symptoms (Recalled from Triage Doc. by RN): PATIENT C/O COUGH AND SOA SINCE THURSDAY. REQUESTING A COVID TEST HEENT Symptoms (Recalled from RN notes): No Resp Symptoms (Recalled from RN notes): Yes Skin Symptoms (Recalled from RN notes): No MS Symptoms (Recalled from RN notes): No Functional Status (Recalled from RN notes): WNL - History of Present Illness Provider Complaint: Patient states that she has not been feeling well since Thursday State that she was having body aches, chills and feeling SOA at times when she is up moving around and having cough States that she has allergies and wasnt sure if it was allergies or COVID and wanted to get tested Denies known fever - Related Data Home Medications Medication Instructions Recorded Confirmed Cyclobenzaprine HCl 10 mg PO DAILY 08/04/17 09/17/20 [Cyclobenzaprine 10mg Tab] Gabapentin [Gabapentin 300mg Cap] 900 mg PO TID 08/04/17 09/17/20 Trazodone HCl 150 mg PO DAILY 08/04/17 09/17/20 bisoproloL fumarate [Bisoprolol 10 mg PO BID 08/04/17 09/17/20 10mg Tablet] hydroCHLOROthiazide [HCTZ 25mg 25 mg PO DAILY 08/04/17 09/17/20 tab] lisinopril 40 mg tablet 40 mg PO DAILY tab 10/13/17 09/17/20 hydroxyzine pamoate 25 mg capsule 25 mg PO HS PRN cap 08/20/20 09/17/20 plecanatide 3 mg tablet 3 mg PO DAILY tab 08/20/20 09/17/20 Previous Rx's Medication Instructions Recorded Ibuprofen [Ibuprofen 600mg 600 mg PO Q6H #30 tab 09/18/19 Tablet] Allergies Allergy/AdvReac Type Sever
[2020-12-13 16:31] VITALS: BP 142/76; PULSE 76; RESP 19; TEMP 36.8; O2SAT 98
== END 2020-12-13 16:32 | disposition home or self-care (01) ==
PROVIDERS: Emergency Provider Nurse Practitioner; PCP Family Medicine
DX: Z20.822 Contact with and (suspected) exposure to COVID-19 (principal); R06.02 Shortness of breath; R05 Cough; Z88.0 Allergy status to penicillin; I10 Essential (primary) hypertension; F33.1 Major depressive disorder, recurrent, moderate; F17.210 Nicotine dependence, cigarettes, uncomplicated
CPT/HCPCS: 99202; G0463; U0003

== ENCOUNTER 2021-03-14 09:40 | Emergency (ER) | payer BC, SELFPAY ==
[2021-03-14 09:40] VITALS: BP 214/93; PULSE 67; RESP 18; TEMP 36.5; O2SAT 99; BMI 24.2
--- NOTE | 2021-03-14 10:55 | HMH.EDUTC ---
[facility] Disposition Clinical Impression: UTI (urinary tract infection) Qualifiers: Urinary tract infection type: site unspecified Hematuria presence: with hematuria Qualified Code(s): N39.0 - Urinary tract infection, site not specified Disposition: Home, Self-Care Condition on Discharge: Good Instructions: Urinary Tract Infection, DI for Urinary Tract Infection (UTI), Phenazopyridine Additional Instructions: Drink plenty of fluids. Take tylenol or ibuprofen for pain or fever. Take the medications as directed. Follow up with your regular doctor. GO TO THE ER FOR ANY WORSENING SYMPTOMS The pyridium will make your urine turn orange, this is an expected side effect. It will stain your clothes if it comes into contact with them. follow up with your primary care physician Prescriptions: Sulfamethoxazole/Trimethoprim [Bactrim DS tablet] 1 each PO BID 7 Days #14 tab Transmission Status: Received by [id number] Fluconazole [Diflucan 150mg tab] 150 mg PO ONCE #1 tab Transmission Status: Received by [id number] Phenazopyridine HCl [Pyridium 200mg Tablet] 200 pow PO TID #6 tab Transmission Status: Received by [id number] Referrals: Charlene Cerda [Primary Care Provider] - Time of Disposition: 11:01 Medical Decision Making - Medical Records Medical records reviewed: No: I reviewed the patient's medical records. - Darek Inquiry Pt receiving controlled substance: No Vital Signs: 03/14/21 09:40 03/14/21 11:01 Temperature 97.7 F 97.7 F Temperature Source Oral Oral Pulse Rate 67 Pulse Rate [Right] 67 Respiratory Rate 18 18 Blood Pressure 178/81 H Blood Pressure [Right Arm] 214/93 H Blood Pressure Mean [Right Arm] 133 02 Sat by Pulse Oximetry 99 - Lab Data Lab results reviewed: Yes: I reviewed the patient's lab results. Lab Results 03/14/21 11:55: Urine Color Melanie, Urine Appearance Clear, Urine pH 7.0, Ur Specific [place] 1.015, Urine Protein Negative, Urine Glucose (UA) Negative, Urine Ketones Negative, Urine Blood 3+, Urine Nitrate Negative, Urine Bilirubin Negative, Urine Urobilinogen 1, Ur Leukocyte Esterase 3+ A Orders (Tests/Meds): ORDERS Category Date Time Status Urine Culture Stat Micro 03/14/21 10:40 Received [facility] HPI - General Stated complaint: burning,frequent urination Time Seen by Provider: 03/14/21 10:55 Mode of Arrival: Ambulatory Description of Symptoms (Recalled from Triage Doc. by RN): pt c/o burning urination, passing blood x 3 days HEENT Symptoms (Recalled from RN notes): No Resp Symptoms (Recalled from RN notes): No Skin Symptoms (Recalled from RN notes): No MS Symptoms (Recalled from RN notes): No Functional Status (Recalled from RN notes): na - History of Present Illness Provider Complaint: She c/o low back pain and burning with urination for the past 3 days. She has a history of getting uti's sometimes and that is what she feels like is happening now. She denies severe discomfort. She does have a history of kidney stones, but she states that this does not feel like a kidney stone so far. - Related Data Home Medications Medication Instructions Recorded Confirmed Cyclobenzaprine HCl 10 mg PO DAILY 08/04/17 09/17/20 [Cyclobenzaprine 10mg Tab] Gabapentin [Gabapentin 300mg Cap] 900 mg PO TID 08/04/17 09/17/20 Trazodone HCl 150 mg PO DAILY 08/04/17 09/17/20 bisoproloL fumarate [Bisoprolol 10 mg PO BID 08/04/17 09/17/20 10mg Tablet] hydroCHLOROthiazide [HCTZ 25mg 25 mg PO DAILY 08/04/17 09/17/20 tab] lisinopril 40 mg tablet 40 mg PO DAILY tab 10/13/17 09/17/20 hydroxyzine pamoate 25 mg capsule 25 mg PO HS PRN cap 08/20/20 09/17/20 plecanatide 3 mg tablet 3 mg PO DAILY tab 08/20/20 09/17/20 Previous Rx's Medication Instructions Recorded Ibuprofen [Ibuprofen 600mg 600 mg PO Q6H #30 tab 09/18/19 Tablet] Fluconazole [Diflucan 150mg tab] 150 mg PO ONCE #1 tab 03/14/21 Phenazopyr
[2021-03-14 11:01] VITALS: BP 178/81; PULSE 67; RESP 18; TEMP 36.5; O2SAT 99
[2021-03-14 20:31] LABS: Color,Urine Amber (Yellow)
[2021-03-14 20:33] LABS: Apearance,Urine Clear (Clear)
[2021-03-14 20:34] LABS: Specific Gravity, Urine 1.015 (1.005-1.030)
[2021-03-14 20:36] LABS: Bilirubin,Urine Negative (Negative); Blood, Urine 3+ (Negative); Glucose,Urine (UA) Negative (Negative); Ketones,Urine Negative (Negative); Protein,Urine Negative (Negative)
[2021-03-14 20:37] LABS: Urobilinogen,Urine 1 EU/dl (0.2)
[2021-03-14 20:38] LABS: UTC Leukocyte Esterase,Urine 3+ (Negative); UTC Nitrate,Urine Negative (Negative)
== END 2021-03-14 11:04 | disposition home or self-care (01) ==
PROVIDERS: Emergency Provider Nurse Practitioner Family; PCP Family Medicine
DX: N30.00 Acute cystitis without hematuria (principal); I10 Essential (primary) hypertension; F17.210 Nicotine dependence, cigarettes, uncomplicated
CPT/HCPCS: 81003; 87086; 99202; G0463

== ENCOUNTER 2021-06-25 10:41 | Emergency (ER) | payer SELFPAY ==
[2021-06-25 10:42] VITALS: BP 147/87; PULSE 69; RESP 18; TEMP 36.7; O2SAT 96; BMI 22.9
[2021-06-25 11:00] VITALS: BP 147/87; PULSE 70; O2SAT 96
[2021-06-25 11:07] VITALS: BMI 22.9
--- NOTE | 2021-06-25 11:08 | XR_ITS ---
PROCEDURE INFORMATION: Exam: XR Chest Exam date and time: 06/25/2021 11:08 AM Age: 61 years old Clinical indication: Cough; Additional info: Prod cough TECHNIQUE: Imaging protocol: XR of the chest. Views: 1 view. COMPARISON: CR XR CHEST 2V 08/20/2020 1:12 PM FINDINGS: Lungs: No focal airspace disease. Calcified granuloma at the right lung base. Pleural spaces: Unremarkable. No pleural effusion. No pneumothorax. Heart/Mediastinum: Cardiomediastinal silhouette is within normal limits. Bones/joints: Unremarkable. IMPRESSION: No acute cardiopulmonary abnormality.
[2021-06-25 11:18] LABS: Coronavirus 19, PCR Not Detected (NotDetected); Influenza A, PCR Not Detected (NotDetected); Influenza B, PCR Not Detected (NotDetected)
[2021-06-25 11:26] LABS: Chloride 100 mmol/L (98-107); Potassium 3.2 mmoL/L (3.5-5.1); Sodium 140 mmol/L (136-145)
[2021-06-25 11:29] LABS: Alanine Aminotransferase 13 U/L (12-78); Albumin Level 4.6 g/dl (3.5-5.0); Albumin/Globulin Ratio 1.3 (1.1-1.8); Alkaline Phosphatase 116 U/L (38-126); Anion Gap 11.2 mEq/L (5-15); Aspartate Amino Transferase 33 U/L (14-36); Bilirubin,Total 0.4 mg/dl (0.2-1.3); Blood Urea Nitrogen 15 mg/dl (7-17); Calcium 10.6 mg/dl (8.4-10.2); Carbon Dioxide 32 mmol/L (22.0-30.0); Creatinine Clearance Estimated 87 mL/min (50-200); Estimated Glomerular Filt Rate 73 ml/min (>60); GFR (African American) 89 ML/MIN (>60); Globulin 3.5 g/dL (1.3-3.2); Glucose 109 mg/dl (74-100); Total Protein,Serum 8.1 g/dl (6.3-8.2)
[2021-06-25 11:30] VITALS: BP 143/86; PULSE 68; O2SAT 97
[2021-06-25 11:45] LABS: Basophils % 0.5 % (0.1-2.0); Eosinophils # 0.4 K/mm3 (0.0-0.4); Eosinophils % 4.5 % (0.1-12.0); Hematocrit 45.4 % (37.0-47.0); Hemoglobin 15.5 g/dL (12.2-16.2); Lymphocytes # 2.2 K/mm3 (0.7-4.5); Lymphocytes % 27.4 % (10-50); Mean Corpuscular HGB Conc 34.1 g/dL (31.8-35.4); Mean Corpuscular Hemoglobin 32.7 pg (27.0-31.2); Mean Corpuscular Volume 96.1 fl (81-99); Mean Platelet Volume 8.8 fl (7.4-10.4); Monocytes # 0.4 K/mm3 (0.1-1.0); Monocytes % 5.2 % (1.7-9.3); Neutrophils # 5.1 K/mm3 (1.8-7.8); Neutrophils % 62.5 % (37.0-80.0); Platelet Count 323 K/mm3 (142-424); Red Blood Count 4.73 M/mm3 (4.20-5.40); Red Cell Distribution Width 13.3 % (11.5-17.5); White Blood Count 8.1 K/mm3 (4.8-10.8)
[2021-06-25 12:00] LABS: Chloride 100 mmol/L (98-107); Potassium 3.2 mmoL/L (3.5-5.1); Sodium 139 mmol/L (136-145)
[2021-06-25 12:03] LABS: Anion Gap 10.2 mEq/L (5-15); Blood Urea Nitrogen 15 mg/dl (7-17); Carbon Dioxide 32 mmol/L (22.0-30.0); Creatinine Clearance Estimated 87 mL/min (50-200); Estimated Glomerular Filt Rate 73 ml/min (>60); GFR (African American) 89 ML/MIN (>60)
[2021-06-25 12:04] LABS: Calcium 9.8 mg/dl (8.4-10.2); Glucose 104 mg/dl (74-100)
--- NOTE | 2021-06-25 12:41 | HMH.EDGENADL ---
ED Disposition Clinical Impression: COPD exacerbation Disposition: Home, Self-Care Condition on Discharge: Good Instructions: DI for Chronic Obstructive Pulmonary Disease Prescriptions: Azithromycin [Zithromax 250mg tab] 250 mg PO DIRECTED #6 tab Transmission Status: Pending to [id number] Referrals: Charlene Cerda [Primary Care Provider] - - Critical Care Critical Care Time: No Attestation: On 06/25/21, the high probability of a clinically significant, sudden or life threatening deterioration of the following system(s) required my full and direct attention, intervention and personal management. The time I documented below is in addition to time spent performing reported procedures but includes the following listed in this critical care notation. Medical Decision Making - Medical Records Medical records reviewed: Yes: I reviewed the patient's medical records. - Darek Inquiry Pt receiving controlled substance: No Vital Signs: 06/25/21 10:42 06/25/21 11:00 06/25/21 11:30 Temperature 98.1 F Temperature Source Oral Pulse Rate 70 68 Pulse Rate [Right Radial] 69 Respiratory Rate 18 Blood Pressure 147/87 H 143/86 H Blood Pressure [Right Arm] 147/87 H Blood Pressure Mean [Right Arm] 107 Blood Pressure Source [Right Arm] Automatic Cuff Blood Pressure Position [Right Arm] Sitting 02 Sat by Pulse Oximetry 96 96 97 Oxygen Delivery Method Room Air - Lab Data Lab Results 06/25/21 10:55: WBC 8.1, RBC 4.73, Hgb 15.5, Hct 45.4, MCV 96.1, MCH 32.7 H, MCHC 34.1, RDW 13.3, Plt Count 323, MPV 8.8, Neut % (Auto) 62.5, Lymph % (Auto) 27.4, [place] % (Auto) 5.2, Eos % (Auto) 4.5, Baso % (Auto) 0.5, Neut # (Auto) 5.1, Lymph # (Auto) 2.2, [place] # (Auto) 0.4, Eos # (Auto) 0.4, Baso # (Auto) 0.0 06/25/21 10:55: Sodium 140, Potassium 3.2 L, Chloride 100, Carbon Dioxide 32 H, Anion Gap 11.2, BUN 15, Creatinine 0.80, Estimated Creat Clear 87, Estimated GFR 73, Est GFR ( Amer) 89, Glucose 109 H, Calcium 10.6 H, Total Bilirubin 0.4, AST 33, ALT 13, Alkaline Phosphatase 116, Total Protein 8.1, Albumin 4.6, Globulin 3.5 H, Albumin/Globulin Ratio 1.3 06/25/21 10:55: SARS-CoV-2 (PCR) Not detected, Influenza A Untype (PCR) Not detected, Influenza Type B (PCR) Not detected 06/25/21 10:55: Sodium 139, Potassium 3.2 L, Chloride 100, Carbon Dioxide 32 H, Anion Gap 10.2, BUN 15, Creatinine 0.80, Estimated Creat Clear 87, Estimated GFR 73, Est GFR ( Amer) 89, Glucose 104 H, Calcium 9.8 Result diagrams: 06/25/21 10:55 06/25/21 10:55 Orders (Tests/Meds): ED MEDICATIONS Generic Name Dose Route Start Last Admin Trade Name Freq PRN Reason Stop Dose Admin Lactated Ringer's 1,000 mls @ 999 mls/hr 06/25/21 12:00 06/25/21 11:57 Lactated Ringer's 1000 Ml Bag IV 06/25/21 13:00 999 mls/hr .Q1H1M SHANTELLE Administration Discontinued Medications Generic Name Dose Route Start Last Admin Trade Name Freq PRN Reason Stop Dose Admin Acetaminophen 1,000 mg 06/25/21 11:47 06/25/21 11:57 Acetaminophen 500mg Tab PO 06/25/21 11:48 1,000 mg ONCE ONE Administration Medical Decision Narrative: 61-year-old male who presents to the emergency department with chief complaint of cough and shortness of breath with sputum production which has been ongoing for 1 week. On evaluation, patient appears to have a COPD exacerbation. Her lung exam sounds as if she is suffering from COPD, and she has a significant smoking history and home rescue inhalers. Unfortunately, the patient explains to me that she is extremely anxious and cannot tolerate nebulizer treatments. She does not wish to have any nebulizers or even inhaled steroids. She does not wish to receive IV steroids here today because it makes her feel too anxious and shaky. Also currently does not have insurance and cannot afford any combination COPD inhalers. She does not wish to have one prescribed. She states she simply wanted a Z-Pa
[2021-06-25 13:10] VITALS: BP 145/90; PULSE 71; RESP 18; TEMP 36.7; O2SAT 98
== END 2021-06-25 13:10 | disposition home or self-care (01) ==
PROVIDERS: Emergency Provider Emergency Medicine; PCP Family Medicine
DX: J44.1 Chronic obstructive pulmonary disease with (acute) exacerbation (principal); Z20.822 Contact with and (suspected) exposure to COVID-19
CPT/HCPCS: 71045; 80048; 80053; 85025; 96365; 99283; C9803; U0003; U0005

== ENCOUNTER 2021-07-08 11:15 | Emergency (ER) | payer SELFPAY ==
[2021-07-08 11:16] VITALS: BP 163/88; PULSE 70; RESP 18; TEMP 36.6; O2SAT 99; BMI 23.6
[2021-07-08 11:35] VITALS: BMI 23.6
[2021-07-08 11:55] LABS: Influenza A, PCR Not Detected (NotDetected); Influenza B, PCR Not Detected (NotDetected)
--- NOTE | 2021-07-08 11:55 | HMH.EDGENADL ---
ED Disposition Clinical Impression: COVID-19 Disposition: Home, Self-Care Condition on Discharge: Good Instructions: DI for Chronic Obstructive Pulmonary Disease Additional Instructions: Follow up with PCP, you should be contacted for appointment time for monoclonal antibody infusion, continue all home medications as previously directed. Referrals: Charlene Cerda [Primary Care Provider] - - Critical Care Critical Care Time: No Attestation: On 07/08/21, the high probability of a clinically significant, sudden or life threatening deterioration of the following system(s) required my full and direct attention, intervention and personal management. The time I documented below is in addition to time spent performing reported procedures but includes the following listed in this critical care notation. Medical Decision Making - Medical Records Medical records reviewed: Yes: I reviewed the patient's medical records. - Darek Inquiry Pt receiving controlled substance: No Vital Signs: 07/08/21 11:16 07/08/21 12:00 Temperature 98 F Temperature Source Oral Pulse Rate 73 Pulse Rate [Left Radial] 70 Respiratory Rate 18 16 Blood Pressure 163/88 H Blood Pressure [Right Arm] 163/88 H Blood Pressure Mean 125 Blood Pressure Mean [Right Arm] 113 Blood Pressure Source [Right Arm] Automatic Cuff Blood Pressure Position [Right Arm] Sitting 02 Sat by Pulse Oximetry 99 97 Oxygen Delivery Method Room Air - Lab Data Lab Results 07/08/21 11:25: SARS-CoV-2 (PCR) Detected A, Influenza A Untype (PCR) Not detected, Influenza Type B (PCR) Not detected Medical Decision Narrative: 61-year-old female past medical history of COPD who is presenting with shortness of air, loss of taste and smell. Differential diagnoses include COVID-19, COPD exacerbation, pneumonia, nontraumatic chest pain, musculoskeletal pain. Given this work-up will include COVID-19 swab, physical exam. Vital signs currently stable, no wheezing, no respiratory distress on exam. Low suspicion for COPD exacerbation. Patient does have prescriptions for albuterol inhaler at home. Given her reassuring vital signs I do not feel that further labs or imaging studies are currently indicated. Will obtain COVID-19 swab, if this is positive given her history of COPD with age she may be candidate for monoclonal antibody infusion. Following this patient will be able to be discharged home. COVID-19 test was positive, discussed possibility of receiving monoclonal antibody infusion, patient would prefer to do this on an outpatient basis. Placed order for this, patient was subsequently discharged. General Adult HPI - General Stated complaint: covid symptoms, test Time Seen by Provider: 07/08/21 11:55 Mode of Arrival: Ambulatory Source of Information: Patient Limitations: No Limitations - History of Present Illness HPI narrative: 61-year-old female with past medical history of COPD who is presenting with concern for COVID-19. Patient states that she has had shortness of air over the last 7 to 10 days. She was tested for COVID-19 2 weeks ago, this was negative. She has had improvement in her symptoms after albuterol breathing treatments. Denies recent fevers or chills. Notes generalized myalgias. No diarrhea, no vomiting, no fevers. Patient denies chest pain. Vital signs currently stable. Patient would like to be tested for COVID-19 as she recently lost her taste and smell 2 days ago. No leg swelling, no abdominal pain. Patient has no other concerns. - Related Data Home Medications Medication Instructions Recorded Confirmed Cyclobenzaprine HCl 10 mg PO DAILY 08/04/17 09/17/20 [Cyclobenzaprine 10mg Tab] Gabapentin [Gabapentin 300mg Cap] 900 mg PO TID 08/04/17 09/17/20 Trazodone HCl 150 mg PO DAILY 08/04/17 09/17/20 bisoproloL fumarate [Bisoprolol 10 mg PO BID 08/04/17 09/17/20 10mg Tablet] hydroCHLOROthiazide [HCTZ 25mg 25 mg PO DAILY 08/04
[2021-07-08 12:00] VITALS: BP 163/88; PULSE 73; RESP 16; O2SAT 97
[2021-07-08 12:21] LABS: Coronavirus 19, PCR Detected (NotDetected)
[2021-07-08 13:06] VITALS: BP 164/80; PULSE 75; RESP 17; TEMP 36.6; O2SAT 97
== END 2021-07-08 13:08 | disposition home or self-care (01) ==
PROVIDERS: Emergency Provider Emergency Medicine; PCP Family Medicine
DX: U07.1 COVID-19 (principal); I10 Essential (primary) hypertension; F33.1 Major depressive disorder, recurrent, moderate; F17.210 Nicotine dependence, cigarettes, uncomplicated
CPT/HCPCS: 99282; C9803; U0003; U0005

== ENCOUNTER 2021-07-21 12:32 | Emergency (ER) | payer SELFPAY ==
--- NOTE | 2021-07-21 12:26 | ECG_ITS ---
APPROVED REPORT Exam: Resting ECG HR:75 bpm ECG Measurements Heart Rate 75 AXES HI 184 P 76 QRSd 78 QRS 57 QT 406 T 63 QTc 453 Conclusion Normal sinus rhythm Biatrial enlargement Abnormal ECG Electronically signed by : Joseph Pike MD 07/24/2021 13:29:26
[2021-07-21 12:33] VITALS: BP 166/98; PULSE 77; RESP 16; TEMP 36.8; O2SAT 98; BMI 25.7
--- NOTE | 2021-07-21 12:43 | XR_ITS ---
PROCEDURE INFORMATION: Exam: XR Chest Exam date and time: 07/21/2021 12:43 PM Age: 61 years old Clinical indication: Shortness of breath TECHNIQUE: Imaging protocol: XR of the chest. Views: 1 view. COMPARISON: CR XR CHEST PORTABLE 06/25/2021 12:01 PM FINDINGS: Lungs: Right lower lobe 1.7 cm calcified nodule unchanged from prior examination. No radiographic evidence of consolidations or pleural effusions. Pleural spaces: See Lungs finding. Heart/Mediastinum: Unremarkable. No cardiomegaly. Bones/joints: Unremarkable. IMPRESSION: No acute findings.
[2021-07-21 13:20] LABS: Basophils # 0.1 K/mm3 (0-0.2); Basophils % 0.8 % (0.1-2.0); Eosinophils # 0.3 K/mm3 (0.0-0.4); Eosinophils % 5.5 % (0.1-12.0); Hemoglobin 14.8 g/dL (12.2-16.2); Lymphocytes % 35.6 % (10-50); Mean Corpuscular HGB Conc 32.9 g/dL (31.8-35.4); Mean Corpuscular Hemoglobin 32.5 pg (27.0-31.2); Mean Corpuscular Volume 98.8 fl (81-99); Mean Platelet Volume 7.7 fl (7.4-10.4); Monocytes # 0.4 K/mm3 (0.1-1.0); Monocytes % 6.6 % (1.7-9.3); Neutrophils # 2.8 K/mm3 (1.8-7.8); Neutrophils % 51.5 % (37.0-80.0); Platelet Count 274 K/mm3 (142-424); Red Blood Count 4.55 M/mm3 (4.20-5.40); Red Cell Distribution Width 13.2 % (11.5-17.5); White Blood Count 5.5 K/mm3 (4.8-10.8)
[2021-07-21 13:29] LABS: Chloride 101 mmol/L (98-107); Sodium 138 mmol/L (136-145)
[2021-07-21 13:30] VITALS: BP 167/97; PULSE 65; RESP 15; O2SAT 97
[2021-07-21 13:30] LABS: Potassium 3.3 mmoL/L (3.5-5.1)
[2021-07-21 13:32] LABS: Alanine Aminotransferase 14 U/L (12-78); Albumin Level 4.4 g/dl (3.5-5.0); Albumin/Globulin Ratio 1.3 (1.1-1.8); Alkaline Phosphatase 93 U/L (38-126); Anion Gap 11.3 mEq/L (5-15); Aspartate Amino Transferase 27 U/L (14-36); Bilirubin,Total 0.6 mg/dl (0.2-1.3); Blood Urea Nitrogen 16 mg/dl (7-17); Carbon Dioxide 29 mmol/L (22.0-30.0); Creatinine Clearance Estimated 93 mL/min (50-200); Estimated Glomerular Filt Rate 86 ml/min (>60); GFR (African American) 104 ML/MIN (>60); Globulin 3.3 g/dL (1.3-3.2); Total Protein,Serum 7.7 g/dl (6.3-8.2)
[2021-07-21 13:33] LABS: Calcium 9.3 mg/dl (8.4-10.2); Glucose 108 mg/dl (74-100)
[2021-07-21 13:37] LABS: D-Dimer 0.63 ug/mL (0.0-0.5)
--- NOTE | 2021-07-21 13:42 | CT_ITS ---
PROCEDURE INFORMATION: Exam: CTA Chest With Contrast Exam date and time: 07/21/2021 1:42 PM Age: 61 years old Clinical indication: Other: Elevated d-dimer and chest pain; Additional info: Elevated d dimer TECHNIQUE: Imaging protocol: Computed tomographic angiography of the chest with contrast. 3D rendering (Not supervised by radiologist): MIP and/or 3D reconstructed images were created by the technologist. Radiation optimization: All CT scans at this facility use at least one of these dose optimization techniques: automated exposure control; mA and/or kV adjustment per patient size (includes targeted exams where dose is matched to clinical indication); or iterative reconstruction. Contrast material: ISOVUE; Contrast volume: 100 ml; Contrast route: INTRA-ARTERIAL (ARTERIAL); COMPARISON: CR XR CHEST PORTABLE 07/21/2021 12:54 PM FINDINGS: Pulmonary arteries: Normal. No pulmonary emboli. Aorta: Unremarkable. No aortic aneurysm. No aortic dissection. Lungs: Mild paraseptal emphysematous changes of the lung apices. Right middle lobe 2.1 cm calcified granuloma unchanged from prior exams. Micro lobular round 1.5 cm solid nodule of the right lower lobe , image 78 of series 5. Pleural spaces: Unremarkable. No pneumothorax. No pleural effusion. Heart: Moderate three-vessel calcific atherosclerotic disease of the coronary arteries. The moderate chest arthro Mediastinal space: Multiple calcified nodes of the mediastinum and [place] likely related to prior granulomatous process. Lymph nodes: Unremarkable. No enlarged lymph nodes. Gallbladder and bile ducts: There are surgical clips within the gallbladder fossa. Spleen: Multiple calcific densities of the spleen are likely related to prior granulomatous process. Kidneys and ureters: Nonobstructive left sided kidney stone measures 3 mm. Bones/joints: Healing right anterior 6th rib fracture. Soft tissues: Unremarkable. IMPRESSION: Micro lobular round 1.5 cm solid nodule of the right lower lobe , image 78 of series 5. For both low risk and high risk patients, consider CT Chest at 3 months, PET/CT, or biopsy. (Reference: Segundo) No CT angiography evidence of pulmonary embolism. REFERENCES: Segundo Velarde, et al. Guidelines for Management of Incidental Pulmonary Nodules Detected on CT Images: From the Fleischner Society 2017. Radiology. 2017;284(1):228-243.
[2021-07-21 13:45] LABS: Troponin I < 0.01 ng/ml (0.00-0.034)
--- NOTE | 2021-07-21 14:54 | HMH.EDGENADL ---
ED Disposition Clinical Impression: COVID-19 Disposition: Home, Self-Care Condition on Discharge: Fair Additional Instructions: We did a CT PE today which was negative for any PEs. However we incidentally found a pulmonary nodule. Given your significant history of smoking we need you to follow-up with your primary care physician regarding the nodule for a repeat CT chest 3 months and possible further work-up. Referrals: Charlene Cerda [Primary Care Provider] - - Critical Care Critical Care Time: No Attestation: On 07/21/21, the high probability of a clinically significant, sudden or life threatening deterioration of the following system(s) required my full and direct attention, intervention and personal management. The time I documented below is in addition to time spent performing reported procedures but includes the following listed in this critical care notation. Medical Decision Making - Medical Records Medical records reviewed: Yes: I reviewed the patient's medical records. - Darek Inquiry Pt receiving controlled substance: No Darek was queried for this patient: No Vital Signs: 07/21/21 12:33 07/21/21 13:30 Temperature 98.2 F Temperature Source Oral Pulse Rate 65 Pulse Rate [Right] 77 Respiratory Rate 16 15 Blood Pressure 167/97 H Blood Pressure [Right Arm] 166/98 H Blood Pressure Mean 129 Blood Pressure Mean [Right Arm] 120 Blood Pressure Source [Right Arm] Automatic Cuff Blood Pressure Position [Right Arm] Sitting 02 Sat by Pulse Oximetry 98 97 Oxygen Delivery Method Room Air - Lab Data Lab results reviewed: Yes: I reviewed the patient's lab results. Lab Results 07/21/21 13:06: WBC 5.5, RBC 4.55, Hgb 14.8, Hct 45.0, MCV 98.8, MCH 32.5 H, MCHC 32.9, RDW 13.2, Plt Count 274, MPV 7.7, Neut % (Auto) 51.5, Lymph % (Auto) 35.6, [place] % (Auto) 6.6, Eos % (Auto) 5.5, Baso % (Auto) 0.8, Neut # (Auto) 2.8, Lymph # (Auto) 2.0, [place] # (Auto) 0.4, Eos # (Auto) 0.3, Baso # (Auto) 0.1 07/21/21 13:06: D-Dimer 0.63 H 07/21/21 13:06: Sodium 138, Potassium 3.3 L, Chloride 101, Carbon Dioxide 29, Anion Gap 11.3, BUN 16, Creatinine 0.70, Estimated Creat Clear 93, Estimated GFR 86, Est GFR ( Amer) 104, Glucose 108 H, Calcium 9.3, Total Bilirubin 0.6, AST 27, ALT 14, Alkaline Phosphatase 93, Troponin I < 0.01, Total Protein 7.7, Albumin 4.4, Globulin 3.3 H, Albumin/Globulin Ratio 1.3 07/21/21 15:29: Troponin I < 0.01 Result diagrams: 07/21/21 13:06 07/21/21 13:06 Orders (Tests/Meds): ED MEDICATIONS Discontinued Medications Generic Name Dose Route Start Last Admin Trade Name Freq PRN Reason Stop Dose Admin Lactated Ringer's 1,000 mls @ 999 mls/hr 07/21/21 12:45 07/21/21 13:11 Lactated Ringer's 1000 Ml Bag IV 07/21/21 13:45 999 mls/hr .Q1H1M SHANTELLE Administration Iopamidol 75 ml 07/21/21 14:05 07/21/21 14:06 Iopamidol-370 (76%);100ml Bottle IV 07/21/21 14:06 75 ml ONCE ONE Administration Ketorolac Tromethamine 15 mg 07/21/21 12:43 07/21/21 13:11 Ketorolac 30mg/Ml Vial IV 07/21/21 12:44 15 mg ONCE ONE Administration Sodium Chloride 50 ml 07/21/21 14:05 07/21/21 14:06 0.9 % Sodium Chloride 50 Ml Vial IV 07/21/21 14:06 50 ml ONCE ONE Administration Sodium Chloride 10 ml 07/21/21 14:05 07/21/21 14:06 Sodium Chloride 0.9% 10ml Syr (Rad Only) IV 07/21/21 14:06 10 ml ONCE ONE Administration ORDERS Category Date Time Status Troponin I Q3H Lab 07/21/21 18:45 Ordered Medical Decision Narrative: Patient is a 61-year-old female with a recent history of COVID-19 presenting to the ED with chest pain and shortness of breath. Patient is awake, alert, not in acute distress. Is hemodynamically stable, afebrile. Patient's physical exam is unremarkable, patient has no lower extremity edema. Includes but is not limited to worsening COVID-19 pneumonia, low concern for bacterial pneumonia, low concern for pulmonary embolism or ACS. Given
--- NOTE | 2021-07-21 15:59 | PC.NURSE ---
Pt is sleeping in room comfortably
[2021-07-21 16:00] LABS: Troponin I < 0.01 ng/ml (0.00-0.034)
[2021-07-21 16:17] VITALS: BP 167/99; PULSE 81; RESP 18; TEMP 37; O2SAT 99
== END 2021-07-21 16:17 | disposition home or self-care (01) ==
PROVIDERS: Emergency Provider Emergency Medicine; PCP Family Medicine
DX: U07.1 COVID-19 (principal); R91.1 Solitary pulmonary nodule; I10 Essential (primary) hypertension; F33.1 Major depressive disorder, recurrent, moderate; F17.210 Nicotine dependence, cigarettes, uncomplicated
CPT/HCPCS: 71045; 71275; 80053; 84484; 85025; 85378; 93005; 96365; 96375; 99282; Q9967

== ENCOUNTER 2022-09-08 08:49 | Emergency (ER) | payer BC, SELFPAY ==
[2022-09-08] VITALS (8 sets, daily range): BP systolic 129–182; BP diastolic 75–130; PULSE 64–90; RESP 12–18; TEMP 36.7–36.8; O2SAT 96–100; BMI 22.9
--- NOTE | 2022-09-08 09:06 | ECG_ITS ---
APPROVED REPORT Exam: Resting ECG HR:71 bpm ECG Measurements Heart Rate 71 AXES TX 188 P 73 QRSd 86 QRS 68 QT 403 T 58 QTc 426 Conclusion SINUS RHYTHM RIGHT ATRIAL ENLARGEMENT [0.3mV P-WAVE] NONSPECIFIC T-WAVE ABNORMALITY ABNORMAL ECG UNCONFIRMED REPORT Electronically signed by : Joseph Pike MD 09/08/2022 19:45:49
--- NOTE | 2022-09-08 09:25 | XR_ITS ---
FINAL REPORT TECHNIQUE: Single view chest CLINICAL HISTORY: Acute SOA COMPARISON: 07/21/2021 FINDINGS: A single view of the chest was obtained. The heart and mediastinum are within normal limits. The lungs are clear. There is no pneumothorax. Osseous structures are unremarkable. IMPRESSION: No acute cardiopulmonary process. Reviewed, Interpreted and Dictated by Celine Gonzalez MD Transcribed by Preeti Huynh Authenticated and [facility]
[2022-09-08 09:37] LABS: Basophils # 0.1 K/mm3 (0-0.2); Basophils % 1.2 % (0.1-2.0); Eosinophils # 0.4 K/mm3 (0.0-0.4); Eosinophils % 6.1 % (0.1-12.0); Hematocrit 43.4 % (37.0-47.0); Hemoglobin 14.6 g/dL (12.2-16.2); Lymphocytes # 1.9 K/mm3 (0.7-4.5); Lymphocytes % 31.9 % (10-50); Mean Corpuscular HGB Conc 33.5 g/dL (31.8-35.4); Mean Corpuscular Volume 92.5 fl (81-99); Mean Platelet Volume 7.7 fl (7.4-10.4); Monocytes # 0.3 K/mm3 (0.1-1.0); Monocytes % 4.8 % (1.7-9.3); Neutrophils # 3.3 K/mm3 (1.8-7.8); Platelet Count 280 K/mm3 (142-424)
[2022-09-08 09:41] LABS: Alanine Aminotransferase 19 U/L (12-78); Albumin Level 4.3 g/dl (3.5-5.0); Albumin/Globulin Ratio 1.2 (1.1-1.8); Alkaline Phosphatase 85 U/L (38-126); Anion Gap 6.2 mEq/L (5-15); Aspartate Amino Transferase 28 U/L (14-36); Bilirubin,Total 0.6 mg/dl (0.2-1.3); Blood Urea Nitrogen 16 mg/dl (7-17); Calcium 8.8 mg/dl (8.4-10.2); Carbon Dioxide 33 mmol/L (22.0-30.0); Chloride 105 mmol/L (98-107); Creatinine Clearance Estimated 98 mL/min (50-200); Estimated Glomerular Filt Rate 85 ml/min (>60); GFR (African American) 103 ML/MIN (>60); Globulin 3.5 g/dL (1.3-3.2); Glucose 134 mg/dl (74-100); Potassium 3.2 mmoL/L (3.5-5.1); Sodium 141 mmol/L (136-145); Total Protein,Serum 7.8 g/dl (6.3-8.2)
[2022-09-08 09:53] LABS: Troponin I < 0.01 ng/ml (0.00-0.034)
--- NOTE | 2022-09-08 10:32 | HMH.EDGENADL ---
Discharge Plan Disposition Patient Disposition: Home, Self-Care Condition: Good Prescriptions Prescriptions: No Action lisinopril 40 mg tablet 40 mg PO DAILY hydroxyzine pamoate 25 mg capsule 25 mg PO HS PRN plecanatide 3 mg tablet 3 mg PO DAILY Label Comments: TAKE 1 TABLET BY MOUTH ONCE DAILY fluconazole 150 MG tablet 150 mg PO ONCE Qty: 1 2RF phenazopyridine 200 MG tablet 200 pow PO TID Qty: 6 0RF sulfamethoxazole-trimethoprim 1 EACH tablet 1 each PO BID 7 Days Qty: 14 0RF gabapentin 300 capsule 900 mg PO TID Label Comments: cyclobenzaprine 10 MG tablet 10 mg PO DAILY bisoprolol fumarate 10 MG tablet 10 mg PO BID trazodone 150 MG tablet 150 mg PO DAILY hydrochlorothiazide 25 MG tablet 25 mg PO DAILY ibuprofen 600 MG tablet 600 mg PO Q6H Qty: 30 0RF azithromycin 250 MG tablet 250 mg PO DIRECTED Qty: 6 0RF Rx Instructions: Take two (2) tablets on day #1, then one (1) tablet day #2 thru #5 Referrals Follow up/Referrals: Mitchell Burt MD [Primary Care Provider] - See instructions Activity Restrictions/Add. Instructions Additional Instructions/Restrictions: You were evaluated in the emergency department today for headache. It is important that you call your primary care provider today to let them know about your blood pressure readings so that way they can make medication adjustments as necessary. Please follow-up with them as soon as possible. Return to the emergency department for any new or worsening symptoms. Clinical Impressions Clinical Impression: Migraine Qualifiers: Migraine type: unspecified Status migrainosus presence: without status migrainosus Intractability: not intractable Qualified Code(s): G43.909 - Migraine, unspecified, not intractable, without status migrainosus Hypertension Qualifiers: Hypertension type: unspecified Qualified Code(s): I10 - Essential (primary) hypertension Instructions Patient Instructions: DI for Migraine, DI for High Blood Pressure Discharge ED Provider: Melanie Cheng General Adult HPI General Chief complaint: Recheck/Abnormal Lab/Rx Stated complaint: high BP, TURNER Time Seen by Provider: 09/08/22 08:51 Mode of Arrival: Ambulatory Source of Information: Patient Limitations: No Limitations Description of Symptoms (Recalled from ER Triage Doc. by RN): pt states her blood pressure has been elevated since Thursday, she states she has had tooth pain as well and thought it was elevated due to pain, she also reports a headache and states she's slightly short of breath, reports vision changes, reports nasal drainage and nonproductive cough, denies fever History of Present Illness HPI narrative: This patient is a 62-year-old female with a history of hypertension and COPD presented to the emergency department for evaluation with concern for headaches and high blood pressure readings at home. She states that roughly 1 week ago, she had a blood pressure taken at the dentist office when she was having dental work done, and she noted that it was high there. She stated that she had been having frequent headaches at home developed a generalized pressure, so she started taking her blood pressure. She states that her systolics have been above 160 with highest being in the 200s on each check. She states that she has had no vision changes, numbness, tingling, unilateral weakness, chest pain, abdominal pain, back pain, or other concerns. She denies any history of headaches previously. At home for management of blood pressure, she takes bisoprolol 10 mg twice daily, lisinopril 40 mg daily, and HCTZ 25 mg daily. She has not missed any doses of these medications. Related Data Home Medications Medication Instructions Recorded Confirmed bisoprolol fumarate 10 mg tablet 10 mg PO BID Hypertension 08/04/17 09/17/20 cyclobenzaprine 10 mg tablet 10 mg PO DAILY Pain 08/04/17 09/17/20 gabapenti
--- NOTE | 2022-09-08 10:33 | CT_ITS ---
FINAL REPORT TECHNIQUE: Thin section axial images were obtained from skull base to vertex without contrast. Coronal reconstruction images were obtained from the axial data. Exam was performed using dose reduction technique. CLINICAL HISTORY: headaches FINDINGS: There is no mass effect or midline shift. There is no hydrocephalus. There is no intracranial hemorrhage. The posterior fossa is without acute abnormality. The basilar cisterns are preserved. There is a small amount of debris in the left frontal sinus. There is a small amount of fluid in the left sphenoid sinus. No acute osseous abnormality is identified. IMPRESSION: 1. No acute intracranial abnormality. 2. Mild left frontal and left sphenoid sinusitis. Reviewed, Interpreted and Dictated by Celine Gonzalez MD Transcribed by Carlita Zelaya Authenticated and [facility]
--- NOTE | 2022-09-08 10:45 | PC.NURSE ---
DAMIEN SHANNON at speaking with patient
--- NOTE | 2022-09-08 10:47 | PC.NURSE ---
notified rad of CT head order
--- NOTE | 2022-09-08 10:53 | PC.NURSE ---
PT TRANSPORTED TO RADIOLOGY VIA WHEELCHAIR.
--- NOTE | 2022-09-08 10:54 | PC.NURSE ---
Rounded on patient, SO at BS. They report no needs at this time. Call light within reach
== END 2022-09-08 12:57 | disposition home or self-care (01) ==
PROVIDERS: Emergency Provider Emergency Medicine; PCP Internal Medicine
DX: G43.909 Migraine, unspecified, not intractable, without status migrainosus (principal); I10 Essential (primary) hypertension; F17.210 Nicotine dependence, cigarettes, uncomplicated
CPT/HCPCS: 70450; 71045; 80053; 84484; 85025; 93005; 96361; 96374; 96375; 99285; J2405

== ENCOUNTER 2023-08-15 10:44 | Emergency (ER) | payer BC, SELFPAY ==
[2023-08-15 10:45] VITALS: BP 90/62; PULSE 65; RESP 14; TEMP 36.4; O2SAT 95; BMI 24.3
--- NOTE | 2023-08-15 10:52 | HMH.EDGENADL ---
Discharge Plan Disposition Patient Disposition: Home, Self-Care Condition: Good Prescriptions Prescriptions: New oseltamivir [Tamiflu] 75 mg capsule 75 mg PO BID 5 Days Qty: 10 0RF benzonatate 200 mg capsule 200 mg PO BID PRN (Reason: cough) Qty: 20 0RF No Action lisinopril 40 mg tablet 40 mg PO DAILY hydroxyzine pamoate 25 mg capsule 25 mg PO HS PRN plecanatide 3 mg tablet 3 mg PO DAILY Patient Comments: TAKE 1 TABLET BY MOUTH ONCE DAILY fluconazole 150 MG tablet 150 mg PO ONCE Qty: 1 2RF phenazopyridine 200 MG tablet 200 pow PO TID Qty: 6 0RF sulfamethoxazole-trimethoprim 1 EACH tablet 1 each PO BID 7 Days Qty: 14 0RF gabapentin 300 capsule 900 mg PO TID Patient Comments: cyclobenzaprine 10 MG tablet 10 mg PO DAILY bisoprolol fumarate 10 MG tablet 10 mg PO BID trazodone 150 MG tablet 150 mg PO DAILY hydrochlorothiazide 25 MG tablet 25 mg PO DAILY ibuprofen 600 MG tablet 600 mg PO Q6H Qty: 30 0RF azithromycin 250 MG tablet 250 mg PO DIRECTED Qty: 6 0RF Rx Instructions: Take two (2) tablets on day #1, then one (1) tablet day #2 thru #5 Referrals Follow up/Referrals: Lori Pitt DO [Primary Care Provider] - See instructions Activity Restrictions/Add. Instructions Additional Instructions/Restrictions: You have tested positive for influenza A. Please take the Tamiflu. Please return with any new or worsening symptoms. Clinical Impressions Clinical Impression: Influenza A Instructions Patient Instructions: Influenza Discharge ED Provider: Hi Day Adult HPI General Chief complaint: Upper Respiratory Infection Stated complaint: cough, chest pain, fever, fatigue, dizzy Time Seen by Provider: 08/15/23 10:50 History of Present Illness HPI narrative: Patient complains of myalgias, malaise, nonproductive cough, reported fevers, gradual in onset starting yesterday, constant, stable in course, denies any chest pain at this time, nursing documentation was reviewed with concerns for chest pain, patient complains of discomfort with coughing but denies any substernal pain, pain outside of discomfort with coughing, radiation, denies any nausea, vomiting, decreased p.o. intake, nursing notes also reviewed with mention of dizziness, patient denies for me any dizziness at this time. She denies any preceding history of dizziness. Patient has sick contact who tested positive for influenza A. Patient does have history of tobacco use disorder, COPD. She has not required hospitalization in the past per her account for COPD. She requires no supplemental oxygen daily. No previous therapies. Denies any abdominal pain, denies any pain elsewhere. Related Data Home Medications Medication Instructions Recorded Confirmed bisoprolol fumarate 10 mg tablet 10 mg PO BID Hypertension 08/04/17 09/17/20 cyclobenzaprine 10 mg tablet 10 mg PO DAILY Pain 08/04/17 09/17/20 gabapentin 300 mg capsule 900 mg PO TID Pain 08/04/17 09/17/20 hydrochlorothiazide 25 mg tablet 25 mg PO DAILY Hypertension 08/04/17 09/17/20 trazodone 150 mg tablet 150 mg PO DAILY OTHER 08/04/17 09/17/20 lisinopril 40 mg tablet 40 mg PO DAILY bp 10/13/17 09/17/20 hydroxyzine pamoate 25 mg capsule 25 mg PO HS PRN 08/20/20 09/17/20 plecanatide 3 mg tablet 3 mg PO DAILY 08/20/20 09/17/20 Previous Rx's Medication Instructions Recorded ibuprofen 600 mg tablet 600 mg PO Q6H #30 tabs 09/18/19 fluconazole 150 mg tablet 150 mg PO ONCE #1 tab 03/14/21 phenazopyridine 200 mg tablet 200 pow PO TID #6 tabs 03/14/21 sulfamethoxazole 800 1 each PO BID 7 days #14 tabs 03/14/21 mg-trimethoprim 160 mg tablet azithromycin 250 mg tablet 250 mg PO DIRECTED #6 tabs 06/25/21 benzonatate 200 mg capsule 200 mg PO BID PRN cough #20 caps 08/15/23 oseltamivir 75 mg capsule (Tamiflu) 75 mg PO BID 5 days #10 caps 08/15/23 Allergies Allergy/AdvReac Type Severity Reaction Status Date / Time Penicillins [PENICILLINS] Allergy Unknown NA-NAUSEA/V Verified 08/15/23 11:06 [facility]ING [facility] Disclaimer: The information contained in this section may have been updated after the patient was seen, as this information can be updated by other users. Medical History Chest pain Dyspnea Palpitations Tobacco dependence syndrome Social History Smoking Status: Current every day smoker tobacco type: cigarettes packs per day: 1 second hand exposure: Yes alcohol intake: never substance use type: denies use current occupational status: employed Travel in the last 8 weeks: None household members: spouse caffeine: Yes (coffee) ROS Obtained: Yes Systems reviewed as appropriate & no additional complaints except as documented As per HPI Physical Exam General General appearance: alert and in no apparent distress Head Head exam: atraumatic and normocephalic Eye Eye exam: Present normal appearance Neck Neck exam: Present normal inspection Chest Chest inspection: Present normal inspection and symmetric chest wall rise Respiratory Respiratory exam: Present normal lung sounds bilaterally and other (bilateral rales); Absent respiratory distress Cardiovascular Cardiovascular exam: Present regular rate and normal rhythm Abdominal Exam Abdominal exam: Present soft Neurological Exam Neurological exam: Present alert and oriented X3 Psychiatric Psychiatric exam: Present normal affect and normal mood Skin Skin exam: Present warm and dry Medical Decision Making Medical Records Medical records reviewed: Yes I reviewed the patient's medical records. Darek Inquiry Pt receiving controlled substance: No Vital Signs: 08/15/23 10:45 08/15/23 11:00 08/15/23 11:30 Temperature 97.6 F Temperature Source Oral Pulse Rate 69 70 Pulse Rate [Left Radial] 65 Respiratory Rate 14 20 Blood Pressure 93/60 L 110/71 Blood Pressure [Right Arm] 90/62 L Blood Pressure Mean 84 Blood Pressure Mean [Right Arm] 71 Blood Pressure Source Blood Pressure Position 02 Sat by Pulse Oximetry 95 96 96 Oxygen Delivery Method Room Air Room Air 08/15/23 12:03 Temperature 98.2 F Temperature Source Oral Pulse Rate 67 Pulse Rate [Left Radial] Respiratory Rate 16 Blood Pressure 98/59 L Blood Pressure [Right Arm] Blood Pressure Mean Blood Pressure Mean [Right Arm] Blood Pressure Source Automatic Cuff Blood Pressure Position Sitting 02 Sat by Pulse Oximetry Oxygen Delivery Method Room Air Lab Data Lab Results 08/15/23 10:50: SARS-CoV-2 (PCR) Not detected, Influenza A Untype (PCR) Detected A, Influenza Type B (PCR) Not detected Orders (Tests/Meds): ORDERS Category Date Time Status XR chest 2V Stat Exams 08/15/23 11:15 Completed Rapid PCR Covid and Flu A/B Stat Lab 08/15/23 10:50 Completed Medical Decision Narrative: Patient with history and exam per above presenting for evaluation of malaise, dyspnea, fevers, with recent exposure to influenza A. Diagnoses considered include upper respiratory infection, pneumonia, COPD exacerbation. There is minimal clinical evidence to suggest ACS, dissection, pericarditis, myocarditis, other acute pathology, at this time no workup is indicated for these entities. This was explained to the patient. Patient denies any chest pain or me, lungs with bilateral rales however no wheezing, no clinical dyspnea or respiratory distress or supplemental oxygen requirement or hypoxemia. ED workup and treatment included: ORDERS Category Date Time Status XR chest 2V Stat Exams 08/15/23 11:15 Completed Rapid PCR Covid and Flu A/B Stat Lab 08/15/23 10:50 Completed Labs were independently interpreted by me, significant for influenza positive Imaging was independently visualized and interpreted by me, significant for no focal consolidative process. Please refer to radiology report for full details. My clinical impression at this time is most consistent with uncomplicated influenza A. Given recent onset of symptoms after shared decision making of risks and benefits of doing so, will elect to treat with course of Tamiflu. I discussed my clinical impression with patient and answered all questions. At this time, the evidence for any other entities in the differential is insufficient to warrant any further testing or ED observation. This was explained to the patient. The patient was advised that persistent or worsening symptoms require further evaluation. I confirmed the patient's understanding of this discussion. Critical Care Critical Care Time Critical Care Time: No
[2023-08-15 11:00] VITALS: BP 93/60; PULSE 69; O2SAT 96
[2023-08-15 11:06] LABS: Coronavirus 19, PCR Not Detected (NotDetected); Influenza B, PCR Not Detected (NotDetected)
--- NOTE | 2023-08-15 11:15 | XR_ITS ---
PROCEDURE INFORMATION: Exam: XR Chest Exam date and time: 08/15/2023 11:12 AM Age: 63 years old Clinical indication: Cough and shortness of breath; Additional info: SOA, flu exposure, crackles TECHNIQUE: Imaging protocol: Radiologic exam of the chest. Views: 2 views. COMPARISON: CR XR CHEST PORTABLE 09/08/2022 9:48 AM FINDINGS: Lungs: No evidence of pneumonia or interstitial edema. Unchanged right lower lobe granuloma Pleural spaces: Unremarkable. No pleural effusion. No pneumothorax. Heart/Mediastinum: Unremarkable. No cardiomegaly. Bones/joints: Unremarkable. IMPRESSION: No evidence of pneumonia or interstitial edema.
[2023-08-15 11:29] LABS: Influenza A, PCR Detected (NotDetected)
[2023-08-15 11:30] VITALS: BP 110/71; PULSE 70; RESP 20; O2SAT 96
[2023-08-15 12:03] VITALS: BP 98/59; PULSE 67; RESP 16; TEMP 36.8; O2SAT 97
== END 2023-08-15 12:04 | disposition home or self-care (01) ==
PROVIDERS: Emergency Provider Emergency Medicine; PCP Family Medicine
DX: J10.1 Influenza due to other identified influenza virus with other respiratory manifestations (principal); R07.89 Other chest pain; R05.9 Cough, unspecified; R50.9 Fever, unspecified; R53.83 Other fatigue; R42 Dizziness and giddiness; F17.210 Nicotine dependence, cigarettes, uncomplicated
CPT/HCPCS: 71046; 87636; 99283

== ENCOUNTER 2023-11-24 07:55 | Outpatient (CLI) | payer BC, SELFPAY ==
--- NOTE | 2023-11-24 08:00 | US_ITS ---
FINAL REPORT TECHNIQUE: Ultrasound images of the abdomen were obtained. CLINICAL HISTORY: CIRRHOSIS DUE TO HEPATITIS C INFECTION COMPARISON: None FINDINGS: ABDOMINAL ULTRASOUND COMPLETE: The liver is normal in size and echogenicity without focal abnormality. Status postcholecystectomy. The common duct is normal. The right kidney measures 11.9 cm in length and is normal in echogenicity without hydronephrosis. The left kidney measures 10.2 cm in length and is normal in echogenicity without hydronephrosis. The spleen is unremarkable. The pancreas is obscured by overlying bowel gas. The visualized portions of the aorta and the IVC are normal. The vena cava is unremarkable. IMPRESSION: Normal ultrasound of the abdomen. Reviewed, Interpreted and Dictated by Nathalia Singh MD Transcribed by Jeanine Berry Authenticated and . [facility]
== END 2023-11-24 23:59 | disposition home or self-care (01) ==
LOC: RAD 07:56
PROVIDERS: PCP Family Medicine; Visit Provider Nurse Practitioner
DX: B18.2 Chronic viral hepatitis C (principal); K74.60 Unspecified cirrhosis of liver
CPT/HCPCS: 76700

== ENCOUNTER 2024-05-11 08:32 | Outpatient (CLI) | payer BC, SELFPAY ==
[2024-05-11 09:04] LABS: Hematocrit 42.8 % (37.0-47.0); Hemoglobin 14.7 g/dL (12.2-16.2); Mean Corpuscular HGB Conc 34.3 g/dL (31.8-35.4); Mean Corpuscular Hemoglobin 31.4 pg (27.0-31.2); Mean Corpuscular Volume 91.6 fl (81-99); Platelet Count 295 K/mm3 (142-424); Red Blood Count 4.67 M/mm3 (4.20-5.40); Red Cell Distribution Width 13.9 % (11.5-17.5); White Blood Count 6.1 K/mm3 (4.8-10.8)
[2024-05-11 09:11] LABS: INR 0.97 (0.9-1.1); Prothrombin Time 10.9 seconds (10.1-12.5)
[2024-05-11 09:30] LABS: Chloride 99 mmol/L (98-107); Potassium 3.3 mmoL/L (3.5-5.1); Sodium 134 mmol/L (136-145)
[2024-05-11 09:31] LABS: Albumin Level 4.3 g/dl (3.5-5.0)
[2024-05-11 09:32] LABS: Alanine Aminotransferase 17 U/L (12-78); Aspartate Amino Transferase 22 U/L (14-36); Blood Urea Nitrogen 16 mg/dl (7-17); Estimated Glomerular Filt Rate 73 ml/min (>60); GFR (African American) 88 ML/MIN (>60)
[2024-05-11 09:32] LABS: Cholesterol 160 mg/dl (140-200); HDL Cholesterol 40 mg/dl (40-60); Triglycerides 82 mg/dl (30-150); VLDL Cholesterol 16 mg/dL (0-40)
[2024-05-11 09:33] LABS: Alkaline Phosphatase 84 U/L (38-126); Bilirubin,Total 0.6 mg/dl (0.2-1.3); Calcium 9.7 mg/dl (8.4-10.2); Glucose 137 mg/dl (74-100)
[2024-05-11 09:34] LABS: Albumin/Globulin Ratio 1.4 (1.1-1.8); Anion Gap 8.3 mEq/L (5-15); Carbon Dioxide 30 mmol/L (22.0-30.0); Globulin 3.1 g/dL (1.3-3.2); Total Protein,Serum 7.4 g/dl (6.3-8.2)
[2024-05-11 09:44] LABS: Hemoglobin A1C 5.8 % (4.0-6.0)
[2024-05-11 09:48] LABS: Free T4 (Free Thyroxine) 1.28 ng/dl (0.78-2.19)
[2024-05-11 10:02] LABS: Thyroid Stimulating Hormone 0.09 uIU/mL (0.465-4.68)
[2024-05-12 08:23] LABS: AFP, Tumor Marker 5.5 ng/mL (0.0-9.2)
[2024-05-12 08:23] LABS: Thyroid Peroxidase Antibodies <9 IU/mL (0-34); Triiodothyronine (T3) Free 3.4 pg/mL (2.0-4.4)
[2024-05-13 07:22] LABS: Thyroid Stimulating Immunoglob 2.65 IU/L (0.00-0.55)
== END 2024-05-11 23:59 | disposition home or self-care (01) ==
LOC: LAB 08:34
PROVIDERS: PCP Family Medicine; Referring Provider Internal Medicine Gastroenterology; Visit Provider Family Medicine
DX: I10 Essential (primary) hypertension (principal); E05.90 Thyrotoxicosis, unspecified without thyrotoxic crisis or storm; E78.5 Hyperlipidemia, unspecified; E72.51 Non-ketotic hyperglycinemia; K74.69 Other cirrhosis of liver
CPT/HCPCS: 36415; 80053; 80061; 82105; 83036; 83970; 84439; 84443; 84445; 84481; 85027; 85610; 86376

== ENCOUNTER 2024-05-17 09:20 | Emergency (ER) | payer BC, SELFPAY ==
[2024-05-17 09:22] VITALS: BP 144/73; PULSE 67; RESP 18; TEMP 36.5; O2SAT 99; BMI 22.9
--- NOTE | 2024-05-17 09:26 | ED_ITS ---
Discharge Plan Disposition Patient Disposition: Home, Self-Care Prescriptions Prescriptions: New potassium chloride 20 mEq tablet extended release 20 meq PO BID Qty: 10 0RF No Action lisinopril 40 mg tablet 40 mg PO DAILY hydroxyzine pamoate 25 mg capsule 25 mg PO HS PRN plecanatide 3 mg tablet 3 mg PO DAILY Patient Comments: TAKE 1 TABLET BY MOUTH ONCE DAILY fluconazole 150 MG tablet 150 mg PO ONCE Qty: 1 2RF phenazopyridine 200 MG tablet 200 pow PO TID Qty: 6 0RF sulfamethoxazole-trimethoprim 1 EACH tablet 1 each PO BID 7 Days Qty: 14 0RF oseltamivir [Tamiflu] 75 mg capsule 75 mg PO BID 5 Days Qty: 10 0RF benzonatate 200 mg capsule 200 mg PO BID PRN (Reason: cough) Qty: 20 0RF gabapentin 300 capsule 900 mg PO TID Patient Comments: cyclobenzaprine 10 MG tablet 10 mg PO DAILY bisoprolol fumarate 10 MG tablet 10 mg PO BID trazodone 150 MG tablet 150 mg PO DAILY hydrochlorothiazide 25 MG tablet 25 mg PO DAILY ibuprofen 600 MG tablet 600 mg PO Q6H Qty: 30 0RF azithromycin 250 MG tablet 250 mg PO DIRECTED Qty: 6 0RF Rx Instructions: Take two (2) tablets on day #1, then one (1) tablet day #2 thru #5 Referrals Follow up/Referrals: Lori Pitt DO [Primary Care Provider] - See instructions Activity Restrictions/Add. Instructions Additional Instructions/Restrictions: Your potassium was slightly low. Take oral potassium for the next 5 days as prescribed and follow-up with your primary care doctor. Take ibuprofen and Tylenol for pain as needed. Please return to the emerged part with any new, concerning, or worsening symptoms. Clinical Impressions Clinical Impression: Chest pain, pleuritic Print Language Print Language: Nigerien Discharge ED Provider: Lionel Le General Adult HPI General Chief complaint: Upper Respiratory Infection Stated complaint: cough, congestion, pain in shoulder (L) Time Seen by Provider: 05/17/24 09:23 Mode of Arrival: Ambulatory Source of Information: Patient Limitations: No Limitations History of Present Illness HPI narrative: This is a 64-year-old female with a history of hypertension who presents with left posterior chest pain, worse with inspiration for the last 4 days. States that she has had some cough and congestion for a couple weeks which she felt like moved into her chest with some wheezing. Has been using albuterol treatments at home. States that she began to experience a sharp pain under her left shoulder blade 4 days ago that was worse when breathing in. Denies fever. States cough is nonproductive. Denies history of blood clots. No anticoagulation use. Related Data Home Medications ?Medication ?Instructions ?Recorded ?Confirmed bisoprolol fumarate 10 mg tablet 10 mg PO BID Hypertension 08/04/17 09/17/20 cyclobenzaprine 10 mg tablet 10 mg PO DAILY Pain 08/04/17 09/17/20 gabapentin 300 mg capsule 900 mg PO TID Pain 08/04/17 09/17/20 hydrochlorothiazide 25 mg tablet 25 mg PO DAILY Hypertension 08/04/17 09/17/20 trazodone 150 mg tablet 150 mg PO DAILY OTHER 08/04/17 09/17/20 lisinopril 40 mg tablet 40 mg PO DAILY bp 10/13/17 09/17/20 hydroxyzine pamoate 25 mg capsule 25 mg PO HS PRN 08/20/20 09/17/20 plecanatide 3 mg tablet 3 mg PO DAILY 08/20/20 09/17/20 Previous Rx's ?Medication ?Instructions ?Recorded ibuprofen 600 mg tablet 600 mg PO Q6H #30 tabs 09/18/19 fluconazole 150 mg tablet 150 mg PO ONCE #1 tab 03/14/21 phenazopyridine 200 mg tablet 200 pow PO TID #6 tabs 03/14/21 sulfamethoxazole 800 1 each PO BID 7 days #14 tabs 03/14/21 mg-trimethoprim 160 mg tablet azithromycin 250 mg tablet 250 mg PO DIRECTED #6 tabs 06/25/21 benzonatate 200 mg capsule 200 mg PO BID PRN cough #20 caps 08/15/23 oseltamivir 75 mg capsule (Tamiflu) 75 mg PO BID 5 days #10 caps 08/15/23 potassium chloride 20 mEq 20 meq PO BID #10 tabs 05/17/24 tablet,extended release Allergies Allergy/AdvReac Type Severity Reaction Status Date / Time Penicillins [PENICILLINS] Allergy Unknown NA-NAUSEA/V Verified 08/15/23 11:06 OMITING PFSH PFSH Disclaimer: The information contained in this section may have been updated after the patient was seen, as this information can be updated by other users. Medical History Chest pain Dyspnea Palpitations Tobacco dependence syndrome Social History Smoking Status: Current every day smoker tobacco type: cigarettes packs per day: 1 second hand exposure: Yes alcohol intake: never substance use type: denies use current occupational status: employed Travel in the last 8 weeks: None household members: spouse caffeine: Yes (coffee) Other Medical History Have you received the Flu Vaccine for this season: No Have you received the Pneumonia Vaccine: No ROS Obtained: Yes All systems reviewed & no additional complaints except as documented Physical Exam General General appearance: alert and in no apparent distress Eye Eye exam: Present normal appearance, PERRL and EOMI Respiratory Respiratory exam: Present normal lung sounds bilaterally; Absent respiratory distress Cardiovascular Cardiovascular exam: Present regular rate and normal rhythm Abdominal Exam Abdominal exam: Present soft and distention; Absent tenderness, guarding or rebound Extremities Exam Extremities exam: Present normal inspection Neurological Exam Neurological exam: Present alert and oriented X3 Skin Skin exam: Present warm and dry Medical Decision Making Medical Records Medical records reviewed: Yes I reviewed the patient's medical records. Screening: Per USPSTF and CDC recommendations, given the prevalence of disease in our region, it is our hospital?s policy to screen for HIV and viral Hepatitis for all patients aged 18 and over and those with ongoing risk factors. Darek Inquiry Pt receiving controlled substance: No Vital Signs: 05/17/24 09:22 05/17/24 10:00 05/17/24 10:31 Temperature 97.7 F Temperature Source Oral Pulse Rate 62 60 Pulse Rate [Left] 67 Respiratory Rate 18 Blood Pressure 141/77 H 132/71 Blood Pressure [Left Arm] 144/73 H Blood Pressure Mean [Left Arm] 96 02 Sat by Pulse Oximetry 99 99 100 Oxygen Delivery Method Room Air 05/17/24 12:02 Temperature 98.1 F Temperature Source Pulse Rate 67 Pulse Rate [Left] Respiratory Rate 18 Blood Pressure 132/71 Blood Pressure [Left Arm] Blood Pressure Mean [Left Arm] 02 Sat by Pulse Oximetry Oxygen Delivery Method Room Air Lab Data Lab Results 05/17/24 10:06: WBC 5.1, RBC 4.78, Hgb 14.8, Hct 42.6, MCV 89.2, MCH 31.0, MCHC 34.8, RDW 13.7, Plt Count 274, MPV 7.0 L, Neut % (Auto) 56.0, Lymph % (Auto) 31.0, Hinds % (Auto) 6.1, Eos % (Auto) 5.9, Baso % (Auto) 1.0, Neut # (Auto) 2.8, Lymph # (Auto) 1.6, Hinds # (Auto) 0.3, Eos # (Auto) 0.3, Baso # (Auto) 0.1, D- Dimer 0.68 H, Sodium 132 L, Potassium 3.0 L, Chloride 96 L, Carbon Dioxide 31 H, Anion Gap 8.0, BUN 10, Creatinine 0.70, Estimated Creat Clear 67, Estimated GFR 85, Est GFR ( Amer) 103, Glucose 103 H, Calcium 9.3, Total Bilirubin 0.6, AST 32, ALT 18, Alkaline Phosphatase 75, Total Protein 7.8, Albumin 4.3, G lobulin 3.5 H, Albumin/Globulin Ratio 1.2 05/17/24 10:06 05/17/24 10:06 Orders (Tests/Meds): ED MEDICATIONS Discontinued Medications Generic Name Dose Route Start Last Admin Trade Name Freq PRN Reason Stop Dose Admin Acetaminophen 1,000 mg 05/17/24 10:35 05/17/24 10:56 Acetaminophen 500mg Tab PO 05/17/24 10:36 1,000 mg ONCE ONE Administration Ibuprofen 400 mg 05/17/24 10:35 05/17/24 10:56 Ibuprofen 400 Mg Tablet PO 05/17/24 10:36 400 mg ONCE ONE Administration Iopamidol 70 ml 05/17/24 10:55 05/17/24 10:57 Iopamidol-370 (76%);100ml Bottle IV 05/17/24 10:56 70 ml ONCE ONE Administration Potassium Chloride 40 meq 05/17/24 10:38 05/17/24 10:56 Potassium Chloride 20meq Tab PO 05/17/24 10:39 40 meq ONCE ONE Administration Sodium Chloride 10 ml 05/17/24 10:55 05/17/24 10:56 Sodium Chloride 0.9% 10ml Syr (Rad Only) IV 05/17/24 10:56 10 ml ONCE ONE Administration Sodium Chloride 50 ml 05/17/24 10:55 05/17/24 10:56 0.9 % Sodium Chloride 50 Ml Vial IV 05/17/24 10:56 50 ml ONCE ONE Administration ORDERS Category Date Time Status CTA Chest [CT angio chest PE protocol] Stat Cat Scan 05/17/24 10:36 Completed Chest XR 2 view (NOT portable) [XR chest 2V] Stat Exams 05/17/24 09:32 Completed CBC w/Auto Diff [Complete Blood Count Auto Diff] Stat Lab 05/17/24 10:06 Completed CMP [Comprehensive Metabolic Panel] Stat Lab 05/17/24 10:06 Completed D-Dimer Stat Lab 05/17/24 10:06 Completed HIV (1&2) Antibody Rapid Stat Lab 05/17/24 10:06 Received Hep C Ab with Reflex to RNA Stat Lab 05/17/24 10:06 Received ECG Data Tracing #1: I reviewed this ECG and interpreted as documented below: Normal sinus rhythm at a rate of 63 with first-degree AV block, QTc 427, normal axis, no concerning ST segment changes for ischemia Medical Decision Narrative: In summary, this 64-year-old female with a history of hypertension presents to the emergency department today with left sided pleuritic chest pain in the setting of cough and congestion. On initial evaluation patient is afebrile, hemodynamically stable, nontachycardic, nontoxic-appearing, satting 99% on RA. Differential diagnosis includes but is not limited to pneumonia, PE, pneumothorax, ACS. Based on these concerns, I ordered EKG and two-view chest x- ray. Patient was very well-appearing and I considered CT PE, however suspect pneumonia based on patient's history and exam. Will obtain chest x-ray and plan for further diagnostic workup if inconclusive. ECG personally interpreted as noted above. Chest x-ray independently interpreted by me, revealing of clear lung estrada bilaterally. Labs personally reviewed demonstrate positive D-dimer at 0.68 which is higher than patient's age-adjusted cutoff without other explanation for patient's pleuritic chest pain. Ordered CT PE at this time. CBC unremarkable. CMP reveals hypokalemia at 3.0 which was repleted orally. CT imaging personally interpreted demonstrates no acute pulmonary embolism or pulmonary pathology. On reassessment in stable condition in no acute distress, satting appropriately on room air. Appropriate for discharge at this time. She is to take Tylenol and ibuprofen for pleuritic chest pain. Critical Care Critical Care Time Critical Care Time: No
--- NOTE | 2024-05-17 09:32 | XR_ITS ---
PROCEDURE INFORMATION: Exam: XR Chest Exam date and time: 05/17/2024 9:42 AM Age: 64 years old Clinical indication: Sternal or substernal pain; Additional info: Chest pain TECHNIQUE: Imaging protocol: Radiologic exam of the chest. Views: 2 views. COMPARISON: CR XR CHEST 2V 08/15/2023 11:12 AM FINDINGS: Lungs: Right lower lobe calcified granuloma. Lungs are otherwise clear. Mild upper lung oligemia consistent with emphysematous change. Pleural spaces: Unremarkable. No pleural effusion. No pneumothorax. Heart/Mediastinum: Unremarkable. No cardiomegaly. Bones/joints: Unremarkable. IMPRESSION: No acute abnormality.
--- NOTE | 2024-05-17 09:43 | ECG_ITS ---
APPROVED REPORT Exam: Resting ECG HR:63 bpm ECG Measurements Heart Rate 63 AXES TX 214 P 78 QRSd 81 QRS 71 QT 420 T 73 QTc 427 Conclusion SINUS RHYTHM WITH FIRST DEGREE AV BLOCK ABNORMAL ECG UNCONFIRMED REPORT Electronically signed by : Lionel Le, 05/17/2024 09:45:12
[2024-05-17 10:00] VITALS: BP 141/77; PULSE 62; O2SAT 99
[2024-05-17 10:15] LABS: Basophils # 0.1 K/mm3 (0-0.2); Eosinophils # 0.3 K/mm3 (0.0-0.4); Eosinophils % 5.9 % (0.1-12.0); Hematocrit 42.6 % (37.0-47.0); Hemoglobin 14.8 g/dL (12.2-16.2); Lymphocytes # 1.6 K/mm3 (0.7-4.5); Mean Corpuscular HGB Conc 34.8 g/dL (31.8-35.4); Mean Corpuscular Volume 89.2 fl (81-99); Monocytes # 0.3 K/mm3 (0.1-1.0); Monocytes % 6.1 % (1.7-9.3); Neutrophils # 2.8 K/mm3 (1.8-7.8); Platelet Count 274 K/mm3 (142-424); Red Blood Count 4.78 M/mm3 (4.20-5.40); Red Cell Distribution Width 13.7 % (11.5-17.5); White Blood Count 5.1 K/mm3 (4.8-10.8)
[2024-05-17 10:23] LABS: Alanine Aminotransferase 18 U/L (12-78); Albumin Level 4.3 g/dl (3.5-5.0); Albumin/Globulin Ratio 1.2 (1.1-1.8); Alkaline Phosphatase 75 U/L (38-126); Aspartate Amino Transferase 32 U/L (14-36); Bilirubin,Total 0.6 mg/dl (0.2-1.3); Blood Urea Nitrogen 10 mg/dl (7-17); Calcium 9.3 mg/dl (8.4-10.2); Carbon Dioxide 31 mmol/L (22.0-30.0); Chloride 96 mmol/L (98-107); Creatinine Clearance Estimated 67 mL/min (50-200); Estimated Glomerular Filt Rate 85 ml/min (>60); GFR (African American) 103 ML/MIN (>60); Globulin 3.5 g/dL (1.3-3.2); Glucose 103 mg/dl (74-100); Sodium 132 mmol/L (136-145); Total Protein,Serum 7.8 g/dl (6.3-8.2)
[2024-05-17 10:29] LABS: D-Dimer 0.68 ug/mL (0.0-0.5)
--- NOTE | 2024-05-17 10:30 | PC.NURSE ---
rounded on pt, c/o pain. dr cooney notified. call light within reach. warm blanket provided
[2024-05-17 10:31] VITALS: BP 132/71; PULSE 60; O2SAT 100
--- NOTE | 2024-05-17 10:36 | CT_ITS ---
PROCEDURE INFORMATION: Exam: CTA Chest With Contrast Exam date and time: 05/17/2024 10:58 AM Age: 64 years old Clinical indication: Abnormal findings; Abnormal diagnostic tests; Elevated d-dimer; Additional info: + d-dimer, pleuritic chest pain TECHNIQUE: Imaging protocol: Computed tomographic angiography of the chest with contrast. Exam focused on the arteries. 3D rendering (Not supervised by radiologist): MIP and/or 3D reconstructed images were created by the technologist. Radiation optimization: All CT scans at this facility use at least one of these dose optimization techniques: automated exposure control; mA and/or kV adjustment per patient size (includes targeted exams where dose is matched to clinical indication); or iterative reconstruction. Contrast material: ISOVUE 370; Contrast volume: 70 ml; Contrast route: INTRAVENOUS (IV); COMPARISON: CT ANGIO CHEST PE PROTOCOL 07/21/2021 1:52 PM FINDINGS: Pulmonary arteries: No PE. No evidence of cardiac strain. Aorta: Unremarkable. No aortic aneurysm. No aortic dissection. Lungs: Large calcified granuloma in the basal right middle lobe is unchanged. A 14 x 16 mm nodule in the right lower lobe abutting the right major fissure and possibly contiguous with right hilar fullness (image [id number] series 5) is unchanged from 07/11/2021 study, highly suggestive of benign etiology (possible noncalcified granuloma or lymph node). Upper lung predominant [id number] paraseptal and centrilobular emphysema. No new or enlarging nodule is identified. Bibasilar subsegmental atelectasis. Pleural spaces: Unremarkable. No pneumothorax. No pleural effusion. Heart: See Pulmonary arteries finding. Lymph nodes: Note made of several mildly prominent and partially calcified precarinal, subcarinal, and right hilar lymph nodes, unchanged from the comparison. Bones/joints: Small sclerotic foci in T6-T9 vertebral bodies are nonspecific. May represent bone islands. Unchanged from the comparison. Soft tissues: Unremarkable. IMPRESSION: 1. No PE. No evidence of cardiac strain. 2. Large calcified granuloma in the basal right middle lobe, and a 17 mm nodule in the right lower lobe abutting the right major fissure are unchanged from 2020 study, highly suggestive of benign entity (for example noncalcified granuloma, lymph node, hamartoma among others). No new or enlarging pulmonary nodule. According to Fleischner criteria, given stability greater than 24 months, no further follow-up needed. Stable pulmonary nodule(s) for which no further follow-up is recommended. (Reference: Segundo). 4. Bibasilar subsegmental atelectasis. COMMENTS: The presence of pulmonary emphysema on CT is an independent risk factor for lung cancer. In the absence of a history or active diagnosis of lung cancer, it is recommended that this patient with emphysema be evaluated for enrollment in a low dose CT lung cancer screening program. REFERENCES: Segundo Velarde, et al. Guidelines for Management of Incidental Pulmonary Nodules Detected on CT Images: From the Fleischner Society 2017. Radiology. 2017;284(1):228-243.
--- NOTE | 2024-05-17 10:52 | PC.NURSE ---
PT TO CT
[2024-05-17] MEDS: IBUPROFEN 400 MG TABLET PO (10:56)
[2024-05-17] MEDS: SODIUM CHLORIDE 0.9% 10ML SYR (RAD ONLY) 10 ML IV (10:56)
[2024-05-17] MEDS: ACETAMINOPHEN 500MG TAB 1000 MG PO (10:56)
[2024-05-17] MEDS: POTASSIUM CHLORIDE 20MEQ TAB 40 MEQ PO (10:56)
[2024-05-17] MEDS: 0.9 % SODIUM CHLORIDE 50 ML VIAL IV (10:56)
[2024-05-17] MEDS: IOPAMIDOL-370 (76%);100ML BOTTLE 70 ML IV (10:57)
[2024-05-17 12:02] VITALS: BP 132/71; PULSE 67; RESP 18; TEMP 36.7; O2SAT 99
[2024-05-17 13:20] LABS: HIV (1&2) Antibody Rapid NONREACTIVE (NONREACTIVE)
[2024-05-19 18:13] LABS: HCV Ab Reactive (Non Reactive)
== END 2024-05-17 12:04 | disposition home or self-care (01) ==
PROVIDERS: Emergency Provider Student in an Organized Health Care Education/Training Program; PCP Family Medicine
DX: R07.81 Pleurodynia (principal); R07.9 Chest pain, unspecified; R05.9 Cough, unspecified; R09.81 Nasal congestion
CPT/HCPCS: 71046; 71275; 80053; 85025; 85378; 86803; 87389; 93005; 99285; Q9967

== ENCOUNTER 2024-09-13 10:30 | Emergency (ER) | payer BC, SELFPAY ==
[2024-09-13 10:32] VITALS: BP 146/76; PULSE 62; RESP 18; TEMP 36.9; O2SAT 100; BMI 23.7
[2024-09-13 10:49] LABS: Coronavirus 19, PCR Not Detected (NotDetected); Influenza A, PCR Not Detected (NotDetected); Influenza B, PCR Not Detected (NotDetected)
--- NOTE | 2024-09-13 11:04 | ED_ITS ---
Discharge Plan Disposition Patient Disposition: Home, Self-Care Condition: Good Prescriptions Prescriptions: No Action lisinopril 40 mg tablet 40 mg PO DAILY hydroxyzine pamoate 25 mg capsule 25 mg PO HS PRN (Reason: Anxiety) plecanatide 3 mg tablet 3 mg PO DAILY Patient Comments: TAKE 1 TABLET BY MOUTH ONCE DAILY gabapentin 300 capsule 900 mg PO TID Patient Comments: bisoprolol fumarate 10 MG tablet 10 mg PO BID trazodone 150 MG tablet 150 mg PO DAILY hydrochlorothiazide 25 MG tablet 25 mg PO DAILY potassium chloride 20 mEq tablet extended release 20 meq PO BID Qty: 10 0RF Referrals Follow up/Referrals: Lori Pitt DO [Primary Care Provider] - See instructions Activity Restrictions/Add. Instructions Additional Instructions/Restrictions: You were evaluated in the emergency department today. Please take Tylenol and ibuprofen at home as needed for pain. You may also choose to take geur-deg-lufuxms medications, such as Flonase and allergy medications. Follow- up with your primary care provider. Return to the emergency department for new or worsening symptoms. Clinical Impressions Clinical Impression: Sore throat Stand Alone Forms Stand Alone Forms: Work/School Release Instructions Patient Instructions: DI for Viral Pharyngitis Print Language Print Language: Romanian Discharge ED Provider: Melanie Cheng General Adult HPI General Chief complaint: Upper Respiratory Infection Stated complaint: sore throat, weakness, swelling in mouth Time Seen by Provider: 09/13/24 10:52 Mode of Arrival: Ambulatory Source of Information: Patient Limitations: No Limitations Description of Symptoms (Recalled from ER Triage Doc. by RN): PT REPORTS BODY ACHES, SORE THROAT AND FATIGUE X 1 WEEK History of Present Illness HPI narrative: This patient is a 64-year-old female who has history of tobacco dependence presenting to the emergency department for evaluation of concern for sore throat, cough, body aches.. Symptoms started 1 week ago. She notes that she also has had some chin pain ever since having her teeth removed back in June . No other acute concerns noted at this time, such as trouble breathing, chest pain, shortness of breath, abdominal pain, or other concerns Related Data Home Medications ?Medication ?Instructions ?Recorded ?Confirmed bisoprolol fumarate 10 mg tablet 10 mg PO BID Hypertension 08/04/17 09/13/24 gabapentin 300 mg capsule 900 mg PO TID Pain 08/04/17 09/13/24 hydrochlorothiazide 25 mg tablet 25 mg PO DAILY Hypertension 08/04/17 09/13/24 trazodone 150 mg tablet 150 mg PO DAILY OTHER 08/04/17 09/13/24 lisinopril 40 mg tablet 40 mg PO DAILY bp 10/13/17 09/13/24 hydroxyzine pamoate 25 mg capsule 25 mg PO HS PRN Anxiety 08/20/20 09/13/24 plecanatide 3 mg tablet 3 mg PO DAILY 08/20/20 09/13/24 Previous Rx's ?Medication ?Instructions ?Recorded potassium chloride 20 mEq 20 meq PO BID #10 tabs 05/17/24 tablet,extended release Allergies Allergy/AdvReac Type Severity Reaction Status Date / Time Penicillins (PENICILLINS) Allergy Unknown NA-NAUSEA/V Verified 08/15/23 11:06 OM[facility]ING [facility] Disclaimer: The information contained in this section may have been updated after the patient was seen, as this information can be updated by other users. Medical History Dyspnea Chest pain Tobacco dependence syndrome Palpitations Family History Other No significant family history Social History Smoking Status: Current every day smoker tobacco type: cigarettes packs per day: 1 second hand exposure: Yes alcohol intake: never substance use type: denies use current occupational status: employed Travel in the last 8 weeks: None household members: spouse caffeine: Yes (coffee) Have you lived/traveled outside [place] in past 30 days?: No Contact w/someone who lives/traveled outside [place] past 30 days?: No Exposure to someone with infectious disease in past 14 days?: No Do you have a fever (greater than 100.4 F or 38 C)?: No Have you tested positive for COVID-19: No Exposed to someone with COVID-19 in past 14 days?: No Do you have a sore throat?: Yes Do you have a cough?: No Do you have any weakness?: Yes Are you experiencing any nausea/vomitting?: No Do you have any diarrhea?: No Are you experiencing any unusual bleeding?: No Do you have any muscle aches/pain?: Yes Do you have any abdominal pain?: No Are you experiencing loss of taste or smell?: No Other Medical History Have you received the Flu Vaccine for this season: No Have you received the Pneumonia Vaccine: No ROS Obtained: Yes All systems reviewed & no additional complaints except as documented Physical Exam General General appearance: alert and in no apparent distress Head Head exam: atraumatic and normocephalic Eye Eye exam: Present normal appearance, PERRL and EOMI ENT ENT exam: Present mucous membranes moist, normal external ear exam and other (Mild posterior oropharyngeal erythema with no significant swelling, no uvular deviation) Neck Neck exam: Present normal inspection, full ROM and trachea midline; Absent tenderness Chest Chest inspection: Present normal inspection and symmetric chest wall rise; Absent tenderness Respiratory Respiratory exam: Present normal lung sounds bilaterally; Absent respiratory distress, wheezes, stridor or accessory muscle use Cardiovascular Cardiovascular exam: Present regular rate and normal rhythm Abdominal Exam Abdominal exam: Present soft; Absent distention, tenderness or guarding Extremities Exam Extremities exam: Present normal inspection, full ROM and normal capillary refill; Absent tenderness or edema Back Exam Back exam: Present normal inspection and full ROM; Absent tenderness Neurological Exam Neurological exam: Present alert, oriented X3, CN II-XII intact and normal gait; Absent motor sensory deficit Psychiatric Psychiatric exam: Present normal affect and normal mood Skin Skin exam: Present warm and dry Medical Decision Making Medical Records Medical records reviewed: Yes I reviewed the patient's medical records. Screening: Per USPSTF and CDC recommendations, given the prevalence of disease in our region, it is our hospital?s policy to screen for HIV and viral Hepatitis for all patients aged 18 and over and those with ongoing risk factors. Darek Inquiry Pt receiving controlled substance: No Vital Signs: 09/13/24 10:32 09/13/24 12:20 Temperature 98.5 F 98.2 F Temperature Source Oral Oral Pulse Rate 67 Pulse Rate [Radial] 62 Respiratory Rate 18 18 Blood Pressure 145/89 H Blood Pressure [Left Arm] 146/76 H Blood Pressure Mean [Left Arm] 99 Blood Pressure Source [Left Arm] Automatic Cuff Blood Pressure Position Sitting Blood Pressure Position [Left Arm] Sitting 02 Sat by Pulse Oximetry 100 Oxygen Delivery Method Room Air Room Air Lab Data Lab results reviewed: Yes I reviewed the patient's lab results. Lab Results 09/13/24 10:40: SARS-CoV-2 (PCR) Not detected, Influenza A Untype (PCR) Not detected, Influenza Type B (PCR) Not detected, Group A Strep Rapid Negative Orders (Tests/Meds): ED MEDICATIONS Discontinued Medications Generic Name Dose Route Start Last Admin Trade Name Juana PRN Reason Stop Dose Admin Tetracycl/Hydrocort/Nystatin/Diphen 15 ml 09/13/24 10:59 09/13/24 11:18 Magic Mouthwash 300ml Bottle PO 09/13/24 11:00 15 ml ONCE ONE Administration ORDERS Category Date Time Status Rapid PCR Covid and Flu A/B Stat Lab 09/13/24 10:40 Completed Rapid Strep Scrn Group A [Strep Scrn Group A (Rapid)] Lab 09/13/24 10:40 Completed Stat Strep Screen Confirmation Stat Micro 09/13/24 10:40 Received Medical Decision Narrative: In summary, this patient is a 64-year-old female presenting to the Emergency Department for evaluation of sore throat, cough, body aches for 1 week. Differential diagnoses considered include but are not limited to viral syndrome, pharyngitis, pneumonia, thrush, allergic rhinitis. Ruling out the most morbid conditions drove assessment. It should be noted patient's history includes tobacco dependence which is not at goal therapy. This complicates all aspects of care by increasing patient's risk for morbidity. On exam, the patient is very well-appearing. She has mild posterior oropharyngeal erythema but no swelling, uvular deviation, stridor, or other concerns. No palpable cervical lymphadenopathy. No meningismus. Workup included strep swab, viral swab. 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 She was given Magic mouthwash for symptomatic improvement. On reassessment, patient is resting comfortably. Strep and COVID/flu swabs are negative. I still maintain that she likely has a viral pharyngitis versus postnasal drip causing symptoms. I feel that she is appropriate for discharge home with close follow-up with primary care. Also advised that she follow-up with her dentist for her chronic lower jaw/chin pain that she states has been going on since she had her teeth removed in June. She was given instructions for supportive management, strict return precautions, and she was discharged after all questions were answered. Critical Care Critical Care Time Critical Care Time: No
[2024-09-13 11:18] LABS: Strep Scrn Group A (Rapid) Negative (Negative)
[2024-09-13] MEDS: MAGIC MOUTHWASH 300ML BOTTLE 15 ML PO (11:18)
--- NOTE | 2024-09-13 11:41 | PC.NURSE ---
ROUNDED ON THE PT. THE PT VOICES THAT SHE DOES NOT NEED ANYTHING AT THIS TIME. CALL LIGHT IS WITHIN REACH OF THE PT.
[2024-09-13 12:20] VITALS: BP 145/89; PULSE 67; RESP 18; TEMP 36.8; O2SAT 100
== END 2024-09-13 12:20 | disposition home or self-care (01) ==
PROVIDERS: Emergency Provider Emergency Medicine; PCP Family Medicine
DX: J02.9 Acute pharyngitis, unspecified (principal); R05.9 Cough, unspecified; M79.10 Myalgia, unspecified site; R53.83 Other fatigue; F17.210 Nicotine dependence, cigarettes, uncomplicated
CPT/HCPCS: 87430; 87636; 99283